=== PATIENT | male | born 1950 | race American Indian/Alaskan Native ===

== ENCOUNTER 2016-12-08 08:05 | Emergency (ER) | payer MEDICARE ==
[2016-12-08 08:45] LABS: Hematocrit 28.2 % (35.5-45.6); Hemoglobin 8.4 gm/dl (11.8-15.2); Mean Corpuscular HGB Conc 30 % (32-34); Platelet Count 227 K/mm3 (140-440); Red Blood Count 4.09 M/mm3 (3.65-5.03); White Blood Count 7.7 K/mm3 (4.5-11.0)
[2016-12-08 08:47] LABS: Mean Corpuscular Hemoglobin 21 pg (28-32); Mean Corpuscular Volume 69 fl (84-94); Red Cell Distribution Width 25.2 % (13.2-15.2)
[2016-12-08 08:56] LABS: Anion Gap 16 mmol/L; Blood Urea Nitrogen 12 mg/dL (9-20); Calcium 9.2 mg/dL (8.4-10.2); Carbon Dioxide 25 mmol/L (22-30); Chloride 103.1 mmol/L (98-107); Glucose 83 mg/dL (75-100); Potassium 4.9 mmol/L (3.6-5.0); Sodium 139 mmol/L (137-145)
[2016-12-08 09:29] LABS: Bilirubin,Urine NEG (Negative); Blood,Urine NEG (Negative); Ketones,Urine NEG (Negative); Leukocyte Esterase,Urine TR (Negative); Mucus,Urine FEW /HPF; Nitrite,Urine NEG (Negative); Protein,Urine <15 mg/dL mg/dL (Negative); RBC,Urine < 1.0 /HPF (0.0-6.0); Urobilinogen,Urine < 2.0 mg/dL (<2.0)
[2016-12-08 09:44] LABS: Anisocytosis 2+; Basophils % (Manual) 0 % (0.0-1.8); Blastocytes % (Manual) 0 %; Hypochromasia 2+; Microcytosis 1+
[2016-12-08 09:45] LABS: Diff Status Complete; Elliptocytes Few; Ovalocytes Few; Poikilocytosis 1+; Target Cells Few
[2016-12-08 13:39] VITALS: BP 128/77
[2016-12-08] MEDS ORDERED: MORPHINE IV ONE (15:57)
[2016-12-08] MEDS ORDERED: ZOFRAN IV ONE (15:57)
--- NOTE | 2016-12-08 18:38 | Cat Scan Report ---
FINAL REPORT EXAM: CT ABDOMEN PELVIS W CON HISTORY: lower abd pain anemia consider neoplasm TECHNIQUE: CT examination of the ABDOMEN after IV contrast CT examination of the PELVIS after IV contrast PRIORS: None. FINDINGS: Degenerative change in the regional skeleton. Rotatory lumbar scoliosis with upper right apex. Left hip arthroplasty in place. Metal artifact limits this region of the pelvis. Right hip degenerative arthrosis with severe medial joint space narrowing. No evidence of acute fracture or focal osseous lesion. Borderline cardiomegaly without pericardial effusion. Normal-appearing liver, gallbladder, adrenals, pancreas, and spleen. Intact normal caliber abdominal aorta with slight calcified atherosclerotic plaque. Normal caliber IVC. Nonspecific central decreased attenuation in the right common femoral vein may be heterogeneous mixture of IV contrast. The differential includes DVT. No renal calculus or hydronephrosis. Nonspecific, smoothly marginated, low density bilateral renal lesions may be cysts. These are too small to characterize measuring 8 mm on the right and 11 mm on the left. They do not enhance with IV contrast. The ureters are obscured by adjacent anatomy. No proximal ureteral distention. Nonspecific slight fat stranding throughout the abdominal wall may reflect mild anasarca. The exam is limited from a paucity of anatomical intraperitoneal fat to separate adjacent organs and structures. The ureters are largely obscured by adjacent soft tissues. Intestinal loops are also difficult to independently assess. No distention of the stomach and duodenum. No small bowel distention in the abdomen and pelvis. Nonspecific slight prominence of fluid in several small bowel loops. Scattered prominence of gas and stool throughout the colon may be secondary to constipation and/or paralytic ileus. No visible pelvic free fluid. No definite abnormality in the visible urinary bladder. Prominent prostate concretions bilaterally. Seminal vesicles obscured. Rectum partly obscured by metal artifact. No focal rectal abnormality. Prominent stool in rectum. No gross ascites or free air. No focal abnormality in the cecum, terminal ileum, and retrocecal appendix. No definite evidence of mass, adenopathy, or abscess. IMPRESSION: Examination limited by paucity of anatomical intraperitoneal fat to separate adjacent organs and structures Nonspecific central decreased attenuation in the proximal right common femoral vein may be heterogeneous mixture of IV contrast. The differential includes DVT. Consider follow-up right leg venous ultrasound to further characterize Borderline cardiomegaly Abdominal wall slight fat stranding may reflect mild anasarca Prominent gas, stool, and caliber in the colon and rectum may reflect constipation and/or paralytic ileus. There is also scattered prominence of gas and fluid in the small bowel
--- NOTE | 2016-12-08 19:14 | Emergency Department Report ---
ED General Adult HPI - General Chief complaint: Extremity Injury, Lower Stated complaint: LEFT HIP/ABD PAIN Time Seen by Provider: 12/08/16 14:41 Source: patient Mode of arrival: Wheelchair Limitations: Physical Limitation - History of Present Illness Initial comments: Patient presents to the emergency department for evaluation of chronic hip pain on the left. He states he's had this problem for many years actually not just 2 -3 weeks as the triage note indicates. He is status post a hip replacement. He states he has problems with urinary incontinence. He does not complain of any acute back pain. His problems with incontinence have gone on for years. He denies any recent fever or chills. There is been no vomiting no nausea. No chills have been referred. He is absolutely no right-sided abdominal pain nor any right lower extremity pain. He does not complain of acute shortness of breath. He states the pain also hurts in the left inguinal area but not on the right. This patient has been admitted prior with a history of alcohol abuse and upper GI bleeding. He required transfusion. He has not followed up with a physician since he was admitted. He did have an upper endoscopy. This revealed a duodenal ulcer. Patient states that he does see dark stools sometimes not recently. He does not admit to any recent alcohol abuse. -: Gradual, week(s), month(s) Location: pelvis, left, lower extremity Quality: aching Consistency: intermittent Improves with: none Worsens with: none Associated Symptoms: denies other symptoms Treatments Prior to Arrival: none - Related Data Previous Rx's Medication Instructions Recorded Last Taken Type Pantoprazole Sodium 40 mg PO DAILY #30 tablet. 05/22/16 Unknown Rx Ferrous Gluconate [Fergon 325 MG 325 mg PO TID #30 tablet 12/08/16 Unknown Rx tab] Lansoprazole [Prevacid] 15 mg PO BID #30 cap 12/08/16 Unknown Rx traMADol [Ultram] 50 mg PO Q6HR PRN #14 tablet 12/08/16 Unknown Rx Allergies Allergy/AdvReac Type Severity Reaction Status Date / Time No Known Allergies Allergy Verified 12/08/16 08:10 ED Review of Systems ROS: Stated complaint: LEFT HIP/ABD PAIN Other details as noted in HPI Constitutional: denies: chills, fever Eyes: denies: eye pain, eye discharge, vision change ENT: denies: ear pain, throat pain Respiratory: denies: cough, shortness of breath, wheezing Cardiovascular: denies: chest pain, palpitations Endocrine: no symptoms reported Gastrointestinal: as per HPI (left pelvis and hip only). denies: abdominal pain , nausea, diarrhea Genitourinary: denies: urgency, dysuria Musculoskeletal: as per HPI. denies: back pain, joint swelling, arthralgia Skin: denies: rash, lesions Neurological: denies: headache, weakness, paresthesias Psychiatric: denies: anxiety, depression Hematological/Lymphatic: denies: easy bleeding, easy bruising ED Past Medical Hx - Past Medical History Hx Hypertension: Yes ((pt denies 12/08/16)) Hx Heart Attack/AMI: No Hx Congestive Heart Failure: No Hx Arthritis: Yes Hx COPD: Yes Additional medical history: bleeding ulcers - Surgical History Hx Pacemaker: Yes Additional Surgical History: left hip replacement. hernia repair - Social History Smoking Status: Current Every Day Smoker Substance Use Type: None - Medications Home Medications: Home Medications Medication Instructions Recorded Confirmed Last Taken Type Pantoprazole Sodium 40 mg PO DAILY #30 tablet. 05/22/16 Unknown Rx Ferrous Gluconate [Fergon 325 MG 325 mg PO TID #30 tablet 12/08/16 Unknown Rx tab] Lansoprazole [Prevacid] 15 mg PO BID #30 cap 12/08/16 Unknown Rx traMADol [Ultram] 50 mg PO Q6HR PRN #14 tablet 12/08/16 Unknown Rx ED Physical Exam - General Limitations: No Limitations General appearance: alert, in no apparent distress - Head Head exam: Present: atraumatic, normocephalic - Eye Eye exam: Present: normal appearance. Absent: scleral icterus - ENT ENT exam: Present: normal exam, mucous membranes moist - Neck Neck exam: Present: normal inspection. Absent: tenderness, meningismus - Respiratory Respiratory exam: Present: normal lung sounds bilaterally. Absent: respiratory distress - Cardiovascular Cardiovascular Exam: Present: regular rate, normal rhythm. Absent: systolic murmur, diastolic murmur, rubs, gallop - GI/Abdominal GI/Abdominal exam: Present: soft, normal bowel sounds. Absent: distended, tenderness, guarding, rebound, rigid - Rectal Rectal exam: Present: deferred - Extremities Exam Extremities exam: Present: other (healed left total hip scar. Reasonably good range of motion. Nontender.) - Back Exam Back exam: Present: normal inspection. Absent: CVA tenderness (R), CVA tenderness (L), muscle spasm, paraspinal tenderness, vertebral tenderness - Neurological Exam Neurological exam: Present: alert, oriented X3, CN II-XII intact. Absent: motor sensory deficit - Psychiatric Psychiatric exam: Present: normal affect, normal mood - Skin Skin exam: Present: warm, dry, intact, normal color. Absent: rash ED Course Vital Signs 12/08/16 12/08/16 12/08/16 08:10 12:51 13:38 Temperature 97.7 F 97.6 F 97.9 F Pulse Rate 70 70 66 Respiratory 17 18 16 Rate Blood Pressure 109/73 130/79 128/77 O2 Sat by Pulse 100 100 100 Oximetry 12/08/16 13:39 Temperature Pulse Rate Respiratory 16 Rate Blood Pressure O2 Sat by Pulse 100 Oximetry - Reevaluation(s) Reevaluation #1: Patient was found to have a hypochromic microcytic anemia. Due to this I decided to do a CT of his abdomen and pelvis considering the differential diagnosis. The CT showed no correlating pathology. There was some mention of contrast collection versus indirect signs of DVT on the right femoral area. However there was no clinical correlation and no right-sided leg pain or swelling. This is considered to be an incidental finding. The patient ate in the emergency department and had no problems whatsoever. He appears to have chronic pain and chronic anemia. He would benefit from colonoscopy and further evaluation by a urologist for his prostatic hypertrophy and intermittent incontinence. He certainly needs follow-up with a primary care physician for his chronic anemia and gastroenterology as above indicated. His disposition is outpatient. He will be given a prescription for lansoprazole , Ultram for pain and ferrous gluconate. He is advised as to the above considerations. 12/08/16 19:17 ED Medical Decision Making - Lab Data Result diagrams: 12/08/16 08:23 12/08/16 08:23 Laboratory Results - last 24 hr 12/08/16 12/08/16 12/08/16 08:23 08:23 09:14 WBC 7.7 RBC 4.09 Hgb 8.4 L Hct 28.2 L MCV 69 L MCH 21 L MCHC 30 L RDW 25.2 H Plt Count 227 Add Manual Diff Complete Total Counted 100 Seg Neuts % (Manual) 76.0 H Band Neutrophils % 1.0 Lymphocytes % (Manual) 8.0 L Reactive Lymphs % (Man) 0 Monocytes % (Manual) 8.0 H Eosinophils % (Manual) 7.0 H Basophils % (Manual) 0 Metamyelocytes % 0 Myelocytes % 0 Promyelocytes % 0 Blast Cells % 0 Nucleated RBC % Not Reportable Seg Neutrophils # Man 5.9 Band Neutrophils # 0.1 Lymphocytes # (Manual) 0.6 L Abs React Lymphs (Man) 0.0 Monocytes # (Manual) 0.6 Eosinophils # (Manual) 0.5 H Basophils # (Manual) 0.0 Metamyelocytes # 0.0 Myelocytes # 0.0 Promyelocytes # 0.0 Blast Cells # 0.0 WBC Morphology Not Reportable Hypersegmented Neuts Not Reportable Hyposegmented Neuts Not Reportable Hypogranular Neuts Not Reportable Smudge Cells Not Reportable Toxic Granulation Not Reportable Toxic Vacuolation Not Reportable Dohle Bodies Not Reportable Pelger-Huet Anomaly Not Reportable Shantel Rods Not Reportable Platelet Estimate Appears normal Clumped Platelets Not Reportable Plt Clumps, EDTA Not Reportable Large Platelets Not Reportable Giant Platelets Not Reportable Platelet Satelliting Not Reportable Plt Morphology Comment Not Reportable RBC Morphology Not Reportable Dimorphic RBCs Not Reportable Polychromasia Not Reportable Hypochromasia 2+ Poikilocytosis 1+ Anisocytosis 2+ Microcytosis 1+ Macrocytosis Not Reportable Spherocytes Not Reportable Pappenheimer Bodies Not Reportable Sickle Cells Not Reportable Target Cells Few Tear Drop Cells Not Reportable Ovalocytes Few Helmet Cells Not Reportable [place] Bodies Not Reportable [place] Rings Not Reportable [place] Cells Not Reportable Bite Cells Not Reportable Crenated Cell Not Reportable Elliptocytes Few Acanthocytes (Spur) Not Reportable Rouleaux Not Reportable Hemoglobin C Crystals Not Reportable Schistocytes Not Reportable Malaria parasites Not Reportable Deandre Bodies Not Reportable Hem Pathologist Commnt No Sodium 139 Potassium 4.9 Chloride 103.1 Carbon Dioxide 25 Anion Gap 16 BUN 12 Creatinine 0.6 L Estimated GFR > 60 BUN/Creatinine Ratio 20.00 Glucose 83 Calcium 9.2 Urine Color Yellow Urine Turbidity Clear Urine pH 7.0 Ur Specific [place] 1.016 Urine Protein <15 mg/dl Urine Glucose (UA) Neg Urine Ketones Neg Urine Blood Neg Urine Nitrite Neg Urine Bilirubin Neg Urine Urobilinogen < 2.0 Ur Leukocyte Esterase Tr Urine WBC (Auto) 1.0 Urine RBC (Auto) < 1.0 U Epithel Cells (Auto) < 1.0 Urine Mucus Few - Radiology Data Radiology results: report reviewed interpreted by me: No acute findings see report Critical care attestation.: If time is entered above; I have spent that time in minutes in the direct care of this critically ill patient, excluding procedure time. ED Disposition Clinical Impression: Left hip pain, Chronic blood loss anemia, Prostatism Disposition: TO HOME OR SELFCARE Is pt being admited?: No Does the pt Need Aspirin: No Condition: Stable Instructions: Arthralgia (ED), Iron Deficiency Anemia (ED), Urinary Incontinence (ED) Additional Instructions: Follow-up with referral physicians. Return any acute change or problem. Rx as directed. Avoid anything that might irritate her stomach such as alcohol, abdomen or aspirin. Prescriptions: Ferrous Gluconate [Fergon 325 MG tab] 325 mg PO TID #30 tablet Lansoprazole [Prevacid] 15 mg PO BID #30 cap traMADol [Ultram] 50 mg PO Q6HR PRN #14 tablet PRN Reason: Pain Referrals: PRIMARY CARE, [Primary Care Provider] - 3-5 Days [facility] [Provider Group] - 3-5 Days [facility] [Provider Group] - 3-5 Days Time of Disposition: 19:31
[2016-12-08] MEDS ORDERED: NORCO 5/325 PO ONE (19:39)
[2016-12-08] MEDS ORDERED: NORCO 5/325 ONE (19:43)
== END 2016-12-08 19:43 | disposition home or self-care (01) ==
LOC: ED 08:05
DX: M25.552 Pain in left hip (principal); D50.0 Iron deficiency anemia secondary to blood loss (chronic); N40.0 Benign prostatic hyperplasia without lower urinary tract symptoms; M19.90 Unspecified osteoarthritis, unspecified site; J44.9 Chronic obstructive pulmonary disease, unspecified; I10 Essential (primary) hypertension; F17.200 Nicotine dependence, unspecified, uncomplicated
CPT/HCPCS: 36415; 74177; 80048; 81001; 85007; 85025; 96374; 96375; 99284; J2270; J2405; Q9967

== ENCOUNTER 2017-06-30 17:48 | Emergency (ER) | payer MEDICARE ==
[2017-06-30 18:19] VITALS: BP 117/75
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
--- NOTE | 2017-06-30 20:53 | XRay Report ---
FINAL REPORT EXAM: XR CHEST ROUTINE 2V HISTORY: coughing TECHNIQUE: Chest, PA and lateral PRIORS: None. FINDINGS: There is a pacemaker on the left. There is borderline cardiomegaly. There is no congestion or infiltrate. There is no pneumothorax IMPRESSION: There is no acute abnormality identified.
== END 2017-06-30 23:10 | disposition left against medical advice (07) ==
LOC: ED 17:48
DX: M54.2 Cervicalgia (principal); Z53.21 Procedure and treatment not carried out due to patient leaving prior to being seen by health care provider
CPT/HCPCS: 71046; 72125

== ENCOUNTER 2018-11-14 18:29 | Emergency (ER) | payer MEDICARE ==
[2018-11-14] MEDS ORDERED: ANCEF ONE (18:44)
--- NOTE | 2018-11-14 19:22 | Emergency Department Report ---
Blank Doc - Documentation Documentation: This is a 68-year-old male that presents with right foot pain and swelling. This initial assessment/diagnostic orders/clinical plan/treatment(s) is/are subject to change based on patient's health status, clinical progression and re- assessment by fellow clinical providers in the ED. Further treatment and workup at subsequent clinical providers discretion. Patient/guardians urged not to elope from the ED as their condition may be serious if not clinically assessed and managed. Initial orders include: 1- Patient sent to [facility] for further evaluation and treatment 2- xray
[2018-11-14 19:28] VITALS: BP 122/63
--- NOTE | 2018-11-14 20:21 | XRay Report ---
RIGHT FOOT 3 VIEWS. INDICATION / CLINICAL INFORMATION: foot pain COMPARISON: None available. FINDINGS: BONES / JOINT(S): No acute fracture or subluxation. Flatfoot deformity is noted. Mild degenerative ch judy at the midfoot. SOFT TISSUES: No significant abnormality. ADDITIONAL FINDINGS: None. Signer Name: Mal Padron MD Signed: 11/14/2018 8:16 PM Workstation Name: [id number]
[2018-11-14] MEDS ORDERED: IBUPROFEN PO ONE (20:52)
[2018-11-14] MEDS ORDERED: DELTASONE PO ONE (20:52)
--- NOTE | 2018-11-14 20:58 | Emergency Department Report ---
ED Extremity Problem HPI - General Chief complaint: Extremity Problem,Nontraumatic Stated complaint: (R) FOOT PAIN Time Seen by Provider: 11/14/18 19:22 Source: patient Mode of arrival: Ambulatory Limitations: No Limitations - History of Present Illness Initial comments: Patient is a 68-year-old male with a history of hypertension, COPD and chronic osteoarthritis who presents to the ED with complains of persistent worsening right knee, right ankle and foot pains with mild swelling intermittently for the last 6 months but worse in the last 1 week. Patient also complains of mild erythematous nonfluctuant maculopapular itchy rashes on his right lower leg for 1 week after working in the [employer]. Patient denies fall, traumatic injury, numbness and tingling or weakness of the right leg, dizziness, chest pain or shortness of breath, fever, chills, nausea, vomiting, back pain or heavy lifting. MD Complaint: extremity pain (right ankle, foot and knee), extremity swelling (right ankle, knee and foot), joint swelling (right ankle, foot and knee joints), joint paint (right knee, ankle and foot) -: Gradual, month(s) (6) Location: right, lower extremity (ankle, foot and knee), knee History of Same: Yes -: Yes myalgia, Yes arthralgia, No fever, No associated dyspnea, No associated chest pain Radiation: none Severity scale (0 -10): 6 Quality: aching, sharp Consistency: intermittent Improves with: nothing Worsens with: weight bearing, walking, exertion, palpation Associated Symptoms: denies other symptoms, arthralgias, rash (right lower leg mildly erythematous rashes). denies: chest pain, shortness of breath, fever, myalgias - Related Data Previous Rx's Medication Instructions Recorded Last Taken Type Pantoprazole Sodium 40 mg PO DAILY #30 tablet. 05/22/16 Unknown Rx Ferrous Gluconate [Fergon 325 MG 325 mg PO TID #20 tablet 12/08/16 Unknown Rx tab] Ferrous Gluconate [Fergon 325 MG 325 mg PO TID #30 tablet 12/08/16 Unknown Rx tab] Lansoprazole [Prevacid] 15 mg PO BID #30 cap 12/08/16 Unknown Rx Lansoprazole [Prevacid] 15 mg PO BID #60 cap 12/08/16 Unknown Rx traMADol [Ultram] 50 mg PO Q6HR PRN #14 tablet 12/08/16 Unknown Rx raNITIdine HCl [Zantac] 150 mg PO Q12H #20 tablet 11/14/18 Unknown Rx traMADol [Ultram 50 MG tab] 50 mg PO Q6HR PRN #14 tablet 11/14/18 Unknown Rx Allergies Allergy/AdvReac Type Severity Reaction Status Date / Time No Known Allergies Allergy Verified 12/08/16 08:10 ED Review of Systems ROS: Stated complaint: (R) FOOT PAIN Other details as noted in HPI Comment: All other systems reviewed and negative Constitutional: denies: chills, fever Eyes: denies: eye pain, eye discharge, vision change ENT: denies: ear pain, throat pain Respiratory: denies: cough, shortness of breath, wheezing Cardiovascular: denies: chest pain, palpitations Endocrine: no symptoms reported Gastrointestinal: denies: abdominal pain, nausea, diarrhea Genitourinary: denies: urgency, dysuria Musculoskeletal: joint swelling (right ankle, knee and foot), arthralgia (right ankle, foot and knee). denies: back pain Skin: rash (erythematous itchy maculopapular rash on right lower leg), change in color, pruritus. denies: lesions Neurological: denies: headache, weakness, paresthesias Psychiatric: denies: anxiety, depression Hematological/Lymphatic: denies: easy bleeding, easy bruising ED Past Medical Hx - Past Medical History Previous Medical History?: Yes Hx Hypertension: Yes ((pt denies 12/08/16)) Hx Heart Attack/AMI: No Hx Congestive Heart Failure: No Hx Arthritis: Yes Hx COPD: Yes Additional medical history: bleeding ulcers - Surgical History Past Surgical History?: Yes Hx Pacemaker: Yes Additional Surgical History: left hip replacement. hernia repair. pacemaker - Social History Smoking Status: Current Every Day Smoker Substance Use Type: None - Medications Home Medications: Home Medications Medication Instructions Recorded Confirmed Last Taken Type Pantoprazole Sodium 40 mg PO DAILY #30 tablet. 05/22/16 Unknown Rx Ferrous Gluconate [Fergon 325 MG 325 mg PO TID #20 tablet 12/08/16 Unknown Rx tab] Ferrous Gluconate [Fergon 325 MG 325 mg PO TID #30 tablet 12/08/16 Unknown Rx tab] Lansoprazole [Prevacid] 15 mg PO BID #30 cap 12/08/16 Unknown Rx Lansoprazole [Prevacid] 15 mg PO BID #60 cap 12/08/16 Unknown Rx traMADol [Ultram] 50 mg PO Q6HR PRN #14 tablet 12/08/16 Unknown Rx raNITIdine HCl [Zantac] 150 mg PO Q12H #20 tablet 11/14/18 Unknown Rx traMADol [Ultram 50 MG tab] 50 mg PO Q6HR PRN #14 tablet 11/14/18 Unknown Rx ED Physical Exam - General Limitations: No Limitations General appearance: alert, in no apparent distress - Head Head exam: Present: atraumatic, normocephalic, normal inspection - Eye Eye exam: Present: normal appearance, PERRL, EOMI. Absent: scleral icterus, conjunctival injection Pupils: Present: normal accommodation - ENT ENT exam: Present: normal exam, normal orophraynx, mucous membranes moist, TM's normal bilaterally, normal external ear exam - Neck Neck exam: Present: normal inspection, full ROM. Absent: tenderness, menin gismus, lymphadenopathy, thyromegaly - Respiratory Respiratory exam: Present: normal lung sounds bilaterally. Absent: respiratory distress, wheezes, rales, rhonchi, chest wall tenderness, accessory muscle use, decreased breath sounds, prolonged expiratory - Cardiovascular Cardiovascular Exam: Present: regular rate, normal rhythm, normal heart sounds. Absent: systolic murmur, diastolic murmur, rubs, gallop - GI/Abdominal GI/Abdominal exam: Present: soft, normal bowel sounds. Absent: tenderness, guarding, rebound, hyperactive bowel sounds, hypoactive bowel sounds, organomegaly, bruit, pulsatile mass, hernia - Rectal Rectal exam: Present: deferred - Extremities Exam Extremities exam: Present: normal inspection, full ROM, tenderness (Palpable right knee, ankle and foot tenderness), normal capillary refill, joint swelling (right knee, ankle and foot). Absent: pedal edema, calf tenderness - Back Exam Back exam: Present: normal inspection, full ROM. Absent: tenderness, CVA tenderness (R), CVA tenderness (L), muscle spasm, paraspinal tenderness, vertebral tenderness - Neurological Exam Neurological exam: Present: alert, oriented X3, CN II-XII intact, normal gait, reflexes normal - Psychiatric Psychiatric exam: Present: normal affect, normal mood - Skin Skin exam: Present: warm, dry, intact, rash (Erythematous maculopapular nonfluctuant rash on right lower leg), erythema ED Course Vital Signs 11/14/18 19:22 Temperature 98 F Pulse Rate 73 Respiratory 18 Rate Blood Pressure 122/63 O2 Sat by Pulse 100 Oximetry - Reevaluation(s) Reevaluation #1: 11/14/18 21:00 This is a 68-year-old AA male who presented to the ED with the worsening right knee, right ankle and foot pain an erythematous maculopapular rash on right lower leg. In the ED, patient is alert and oriented 3 and is not in distress. The right foot x-ray shows no acute fracture or subluxations. Flat foot deformity was noted index as well, and the mild degenerative changes at the midfoot. Patient was treated for pain and discharged home on medications for pain as well as a cream for the erythematous rash on the right lower leg. Patient was advised to follow-up with his primary care physician in 5-7 days for reevaluation or return to the ED immediately if symptoms get worse. 11/14/18 21:03 ED Medical Decision Making - Radiology Data Radiology results: report reviewed, image reviewed The right foot x-ray shows no acute fracture or subluxations. Flat foot deformity was noted index as well, and the mild degenerative changes at the midfoot. - Medical Decision Making This is a 68-year-old AA male who presented to the ED with the worsening right knee, right ankle and foot pain an erythematous maculopapular rash on right lower leg. In the ED, patient is alert and oriented 3 and is not in distress. The right foot x-ray shows no acute fracture or subluxations. Flat foot deformity was noted index as well, and the mild degenerative changes at the midfoot. Patient was treated for pain and discharged home on medications for pain as well as a cream for the erythematous rash on the right lower leg. Patient was advised to follow-up with his primary care physician in 5-7 days for reevaluation or return to the ED immediately if symptoms get worse. - Differential Diagnosis Right foot sprain; Chronic degeenrative joint disease; Irritant dermatitis Critical care attestation.: If time is entered above; I have spent that time in minutes in the direct care of this critically ill patient, excluding procedure time. ED Disposition Clinical Impression: Chronic osteoarthritis Irritant contact dermatitis Qualifiers: Contact dermatitis trigger: unspecified trigger Qualified Code(s): L24.9 - Irritant contact dermatitis, unspecified cause Disposition: TO HOME OR SELFCARE Is pt being admited?: No Does the pt Need Aspirin: No Condition: Stable Instructions: Osteoarthritis (ED), Contact Dermatitis (ED) Additional Instructions: Take medications with food, drink plenty of fluids and follow up with your primary care physician in 5-7 days for reevaluation. Return to the ED immediately if symptoms get worse. Prescriptions: traMADol [Ultram 50 MG tab] 50 mg PO Q6HR PRN #14 tablet PRN Reason: Pain raNITIdine HCl [Zantac] 150 mg PO Q12H #20 tablet Referrals: [facility] [Outside] - 3-5 Days Time of Disposition: 21:07 Print Language: VIET[place]ESE
== END 2018-11-14 21:15 | disposition home or self-care (01) ==
LOC: ED 18:29
DX: M17.11 Unilateral primary osteoarthritis, right knee (principal); M19.071 Primary osteoarthritis, right ankle and foot; L24.9 Irritant contact dermatitis, unspecified cause; I10 Essential (primary) hypertension; M19.90 Unspecified osteoarthritis, unspecified site; F17.200 Nicotine dependence, unspecified, uncomplicated; J44.9 Chronic obstructive pulmonary disease, unspecified; Z95.0 Presence of cardiac pacemaker; Z96.642 Presence of left artificial hip joint; Z79.899 Other long term (current) drug therapy
CPT/HCPCS: 73630; 99283; J7512; J0690

== ENCOUNTER 2019-03-16 16:48 | Inpatient (IN) | payer MEDICARE ==
--- NOTE | 2019-03-16 17:01 | Event Note ---
ED Screening Note ED Screening Note: presents for detox states he used cocaine yesterday former drinker former smoker +SI "jump off a bridge" states pt "does not have anyone anymore due to his drug addiction" This initial assessment/diagnostic orders/clinical plan/treatment(s) is/are subject to change based on patients health status, clinical progression and re- assessment by fellow clinical providers in the ED. Further treatment and workup at subsequent clinical providers discretion. Patient/guardian urged not to elope from the ED as their condition may be serious if not clinically assessed and managed. Initial orders include: medical clearance, ED hold
[2019-03-16] MEDS ORDERED: SODIUM CHLORIDE 0.9% 1000 ML 1,000 ML IV ONE (18:48)
--- NOTE | 2019-03-16 19:18 | Emergency Department Report ---
ED General Adult HPI - General Chief complaint: Medical Clearance Stated complaint: DETOX Time Seen by Provider: 03/16/19 16:58 Source: patient Mode of arrival: Ambulatory Limitations: No Limitations - History of Present Illness Initial comments: Patient is a 68-year-old male with a past medical history of COPD hypertension who also has a pacemaker in place who is here secondary to cocaine abuse. Patient states he would like help with stopping his cocaine addiction. Patient states that when he uses cocaine he does have chest pain or shortness of breath. Patient states this lasts anywhere from minutes to an hour. Patient still denies suicidal ideations with me however he did express to our medical screening exam prior that he has had thoughts recently of jumping off a bridge. Again patient states that he is not suicidal at this time and is here voluntarily to get help for cocaine abuse. Patient states he has not eaten or drank anything in the last 3 days secondary to a cocaine binge. Patient states he has some dizziness and weakness at this time. Patient states his chest pain is not present at this time. He denies fevers chills current nausea vomiting diarrhea neck stiffness or headache. Patient states he has no focal neurological deficits. Severity scale (0 -10): 7 - Related Data Previous Rx's Medication Instructions Recorded Last Taken Type Pantoprazole Sodium 40 mg PO DAILY #30 tablet. 05/22/16 Unknown Rx Ferrous Gluconate [Fergon 325 MG 325 mg PO TID #20 tablet 12/08/16 Unknown Rx tab] Ferrous Gluconate [Fergon 325 MG 325 mg PO TID #30 tablet 12/08/16 Unknown Rx tab] Lansoprazole [Prevacid] 15 mg PO BID #30 cap 12/08/16 Unknown Rx Lansoprazole [Prevacid] 15 mg PO BID #60 cap 12/08/16 Unknown Rx traMADoL [Ultram] 50 mg PO Q6HR PRN #14 tablet 12/08/16 Unknown Rx raNITIdine HCl [Zantac] 150 mg PO Q12H #20 tablet 11/14/18 Unknown Rx traMADoL [Ultram 50 MG tab] 50 mg PO Q6HR PRN #14 tablet 11/14/18 Unknown Rx Allergies Allergy/AdvReac Type Severity Reaction Status Date / Time No Known Allergies Allergy Verified 12/08/16 08:10 ED Review of Systems ROS: Stated complaint: DETOX Other details as noted in HPI Comment: All other systems reviewed and negative ED Past Medical Hx - Past Medical History Hx Hypertension: Yes ((pt denies 12/08/16)) Hx Heart Attack/AMI: No Hx Congestive Heart Failure: No Hx Arthritis: Yes Hx COPD: Yes Additional medical history: bleeding ulcers - Surgical History Hx Pacemaker: Yes Additional Surgical History: left hip replacement. hernia repair. pacemaker - Social History Smoking Status: Current Every Day Smoker Substance Use Type: Alcohol, Cocaine, Marijuana - Medications Home Medications: Home Medications Medication Instructions Recorded Confirmed Last Taken Type Pantoprazole Sodium 40 mg PO DAILY #30 tablet. 05/22/16 Unknown Rx Ferrous Gluconate [Fergon 325 MG 325 mg PO TID #20 tablet 12/08/16 Unknown Rx tab] Ferrous Gluconate [Fergon 325 MG 325 mg PO TID #30 tablet 12/08/16 Unknown Rx tab] Lansoprazole [Prevacid] 15 mg PO BID #30 cap 12/08/16 Unknown Rx Lansoprazole [Prevacid] 15 mg PO BID #60 cap 12/08/16 Unknown Rx traMADoL [Ultram] 50 mg PO Q6HR PRN #14 tablet 12/08/16 Unknown Rx raNITIdine HCl [Zantac] 150 mg PO Q12H #20 tablet 11/14/18 Unknown Rx traMADoL [Ultram 50 MG tab] 50 mg PO Q6HR PRN #14 tablet 11/14/18 Unknown Rx ED Physical Exam - General Limitations: No Limitations General appearance: alert, in no apparent distress - Head Head exam: Present: atraumatic, normocephalic - Eye Eye exam: Present: normal appearance, PERRL, EOMI - ENT ENT exam: Present: mucous membranes moist - Neck Neck exam: Present: normal inspection - Respiratory Respiratory exam: Present: normal lung sounds bilaterally. Absent: respiratory distress, wheezes, rales, rhonchi - Cardiovascular Cardiovascular Exam: Present: regular rate, normal rhythm, normal heart sounds. Absent: systolic murmur, diastolic murmur, rubs, gallop - GI/Abdominal GI/Abdominal exam: Present: soft, normal bowel sounds. Absent: distended, tenderness, guarding, rebound - Rectal Rectal exam: Present: deferred - Extremities Exam Extremities exam: Present: normal inspection - Back Exam Back exam: Present: normal inspection - Neurological Exam Neurological exam: Present: alert, oriented X3 - Psychiatric Psychiatric exam: Present: normal affect, normal mood - Skin Skin exam: Present: warm, dry, intact, normal color. Absent: rash ED Course Vital Signs 03/16/19 03/16/19 03/16/19 16:59 18:54 18:56 Temperature 97.4 F L Pulse Rate 97 H 73 Respiratory 20 18 18 Rate Blood Pressure 87/59 Blood Pressure 123/60 [Left] O2 Sat by Pulse 98 100 Oximetry 03/17/19 03:08 Temperature Pulse Rate Respiratory Rate Blood Pressure Blood Pressure 94/60 [Left] O2 Sat by Pulse Oximetry - Reevaluation(s) Reevaluation #1: 03/17/19 01:33 Patient asleep at this time. Patient initially had IV fluids ordered but they were held because the patient's blood pressure was no longer hypotensive at the time of our initial interaction. Patient was awake and alert and about the room. Patient while awake was refusing an IV being placed. After the second troponin came back elevated the patient did agree to having IV placed. Patient did have a drop in his blood pressure after falling asleep. IV fluids will be given at this point. Patient is to be admitted to the hospitalist service however because of the patient's hypotension which has not been addressed with IV fluids were unable to place a bed request at this time secondary to not knowing which even if the patient would be best served. Reevaluation #2: 03/17/19 03:26 Patient had multiple hypotensive readings even after the patient was woken up and given something to eat and the patient also has laboratory to the bathroom to have a bowel movement. Patient very agitated and stating that he wanted more sandwiches. I questioned whether the patient was actually hypotensive and that he wasn't having a blood pressure cuff malfunction. Blood pressure cuff was changed in the patient's pressure was 110/80. Patient is now receiving IV fluids as well however. Patient is stable for admission to telemetry. ED Medical Decision Making - Lab Data Result diagrams: 03/16/19 21:05 03/16/19 21:05 Lab Results 03/16/19 03/16/19 03/16/19 Range/Units 21:05 21:05 21:05 WBC 9.6 (4.5-11.0) K/mm3 RBC 4.51 (3.65-5.03) M/mm3 Hgb 14.0 (11.8-15.2) gm/dl Hct 42.0 (35.5-45.6) % MCV 93 (84-94) fl MCH 31 (28-32) pg MCHC 33 (32-34) % RDW 14.3 (13.2-15.2) % Plt Count 159 (140-440) K/mm3 Lymph % (Auto) 11.9 L (13.4-35.0) % [place] % (Auto) 6.4 (0.0-7.3) % Eos % (Auto) 1.7 (0.0-4.3) % Baso % (Auto) 0.2 (0.0-1.8) % Lymph # 1.1 L (1.2-5.4) K/mm3 [place] # 0.6 (0.0-0.8) K/mm3 Eos # 0.2 (0.0-0.4) K/mm3 Baso # 0.0 (0.0-0.1) K/mm3 Seg Neutrophils % 79.8 H (40.0-70.0) % Seg Neutrophils # 7.7 (1.8-7.7) K/mm3 Sodium 139 (137-145) mmol/L Potassium 4.3 (3.6-5.0) mmol/L Chloride 106.0 (98-107) mmol/L Carbon Dioxide 22 (22-30) mmol/L Anion Gap 15 mmol/L BUN 10 (9-20) mg/dL Creatinine 0.7 L (0.8-1.5) mg/dL Estimated GFR > 60 ml/min BUN/Creatinine Ratio 14 % Glucose 103 H (75-100) mg/dL Calcium 9.0 (8.4-10.2) mg/dL Total Bilirubin 0.40 (0.1-1.2) mg/dL AST 30 (5-40) units/L ALT 27 (7-56) units/L Alkaline Phosphatase 101 (35-129) units/L Total Creatine Kinase (55-170) units/L Troponin T (0.00-0.029) ng/mL Total Protein 7.3 (6.3-8.2) g/dL Albumin 3.2 L (3.9-5) g/dL Albumin/Globulin Ratio 0.8 % Triglycerides (2-149) mg/dL Cholesterol (50-199) mg/dL LDL Cholesterol Direct (50-130) mg/dL HDL Cholesterol (40-59) mg/dL Cholesterol/HDL Ratio % Urine Color (Yellow) Urine Turbidity (Clear) Urine pH (5.0-7.0) Ur Specific [place] (1.003-1.030) Urine Protein (Negative) mg/dL Urine Glucose (UA) (Negative) mg/dL Urine Ketones (Negative) mg/dL Urine Blood (Negative) Urine Nitrite (Negative) Urine Bilirubin (Negative) Urine Urobilinogen (<2.0) mg/dL Ur Leukocyte Esterase (Negative) Urine WBC (Auto) (0.0-6.0) /HPF Urine RBC (Auto) (0.0-6.0) /HPF U Epithel Cells (Auto) (0-13.0) /HPF Urine Bacteria (Auto) (Negative) /HPF Urine Mucus /HPF Salicylates < 0.3 L (2.8-20.0) mg/dL Urine Opiates Screen Urine Methadone Screen Acetaminophen (10.0-30.0) ug/mL Ur Barbiturates Screen Ur Phencyclidine Scrn Ur Amphetamines Screen U Benzodiazepines Scrn Urine Cocaine Screen U Marijuana (THC) Screen Drugs of Abuse Note Plasma/Serum Alcohol (0-0.07) % 03/16/19 03/16/19 03/16/19 Range/Units 21:05 21:05 21:05 WBC (4.5-11.0) K/mm3 RBC (3.65-5.03) M/mm3 Hgb (11.8-15.2) gm/dl Hct (35.5-45.6) % MCV (84-94) fl MCH (28-32) pg MCHC (32-34) % RDW (13.2-15.2) % Plt Count (140-440) K/mm3 Lymph % (Auto) (13.4-35.0) % [place] % (Auto) (0.0-7.3) % Eos % (Auto) (0.0-4.3) % Baso % (Auto) (0.0-1.8) % Lymph # (1.2-5.4) K/mm3 [place] # (0.0-0.8) K/mm3 Eos # (0.0-0.4) K/mm3 Baso # (0.0-0.1) K/mm3 Seg Neutrophils % (40.0-70.0) % Seg Neutrophils # (1.8-7.7) K/mm3 Sodium (137-145) mmol/L Potassium (3.6-5.0) mmol/L Chloride (98-107) mmol/L Carbon Dioxide (22-30) mmol/L Anion Gap mmol/L BUN (9-20) mg/dL Creatinine (0.8-1.5) mg/dL Estimated GFR ml/min BUN/Creatinine Ratio % Glucose (75-100) mg/dL Calcium (8.4-10.2) mg/dL Total Bilirubin (0.1-1.2) mg/dL AST (5-40) units/L ALT (7-56) units/L Alkaline Phosphatase (35-129) units/L Total Creatine Kinase 362 H (55-170) units/L Troponin T (0.00-0.029) ng/mL Total Protein (6.3-8.2) g/dL Albumin (3.9-5) g/dL Albumin/Globulin Ratio % Triglycerides (2-149) mg/dL Cholesterol (50-199) mg/dL LDL Cholesterol Direct (50-130) mg/dL HDL Cholesterol (40-59) mg/dL Cholesterol/HDL Ratio % Urine Color (Yellow) Urine Turbidity (Clear) Urine pH (5.0-7.0) Ur Specific [place] (1.003-1.030) Urine Protein (Negative) mg/dL Urine Glucose (UA) (Negative) mg/dL Urine Ketones (Negative) mg/dL Urine Blood (Negative) Urine Nitrite (Negative) Urine Bilirubin (Negative) Urine Urobilinogen (<2.0) mg/dL Ur Leukocyte Esterase (Negative) Urine WBC (Auto) (0.0-6.0) /HPF Urine RBC (Auto) (0.0-6.0) /HPF U Epithel Cells (Auto) (0-13.0) /HPF Urine Bacteria (Auto) (Negative) /HPF Urine Mucus /HPF Salicylates (2.8-20.0) mg/dL Urine Opiates Screen Urine Methadone Screen Acetaminophen < 5.0 L (10.0-30.0) ug/mL Ur Barbiturates Screen Ur Phencyclidine Scrn Ur Amphetamines Screen U Benzodiazepines Scrn Urine Cocaine Screen U Marijuana (THC) Screen Drugs of Abuse Note Plasma/Serum Alcohol < 0.01 (0-0.07) % 03/16/19 03/16/19 03/16/19 Range/Units 21:05 Unknown Unknown WBC (4.5-11.0) K/mm3 RBC (3.65-5.03) M/mm3 Hgb (11.8-15.2) gm/dl Hct (35.5-45.6) % MCV (84-94) fl MCH (28-32) pg MCHC (32-34) % RDW (13.2-15.2) % Plt Count (140-440) K/mm3 Lymph % (Auto) (13.4-35.0) % [place] % (Auto) (0.0-7.3) % Eos % (Auto) (0.0-4.3) % Baso % (Auto) (0.0-1.8) % Lymph # (1.2-5.4) K/mm3 [place] # (0.0-0.8) K/mm3 Eos # (0.0-0.4) K/mm3 Baso # (0.0-0.1) K/mm3 Seg Neutrophils % (40.0-70.0) % Seg Neutrophils # (1.8-7.7) K/mm3 Sodium (137-145) mmol/L Potassium (3.6-5.0) mmol/L Chloride (98-107) mmol/L Carbon Dioxide (22-30) mmol/L Anion Gap mmol/L BUN (9-20) mg/dL Creatinine (0.8-1.5) mg/dL Estimated GFR ml/min BUN/Creatinine Ratio % Glucose (75-100) mg/dL Calcium (8.4-10.2) mg/dL Total Bilirubin (0.1-1.2) mg/dL AST (5-40) units/L ALT (7-56) units/L Alkaline Phosphatase (35-129) units/L Total Creatine Kinase (55-170) units/L Troponin T 0.028 (0.00-0.029) ng/mL Total Protein (6.3-8.2) g/dL Albumin (3.9-5) g/dL Albumin/Globulin Ratio % Triglycerides (2-149) mg/dL Cholesterol (50-199) mg/dL LDL Cholesterol Direct (50-130) mg/dL HDL Cholesterol (40-59) mg/dL Cholesterol/HDL Ratio % Urine Color Yellow (Yellow) Urine Turbidity Clear (Clear) Urine pH 6.0 (5.0-7.0) Ur Specific [place] 1.020 (1.003-1.030) Urine Protein <15 mg/dl (Negative) mg/dL Urine Glucose (UA) Neg (Negative) mg/dL Urine Ketones Neg (Negative) mg/dL Urine Blood Neg (Negative) Urine Nitrite Neg (Negative) Urine Bilirubin Neg (Negative) Urine Urobilinogen 4.0 (<2.0) mg/dL Ur Leukocyte Esterase Sm (Negative) Urine WBC (Auto) 4.0 (0.0-6.0) /HPF Urine RBC (Auto) 4.0 (0.0-6.0) /HPF U Epithel Cells (Auto) < 1.0 (0-13.0) /HPF Urine Bacteria (Auto) 1+ (Negative) /HPF Urine Mucus Few /HPF Salicylates (2.8-20.0) mg/dL Urine Opiates Screen Presumptive negative Urine Methadone Screen Presumptive negative Acetaminophen (10.0-30.0) ug/mL Ur Barbiturates Screen Presumptive negative Ur Phencyclidine Scrn Presumptive negative Ur Amphetamines Screen Presumptive negative U Benzodiazepines Scrn Presumptive negative Urine Cocaine Screen Presumptive positive U Marijuana (THC) Screen Presumptive negative Drugs of Abuse Note Disclamer Plasma/Serum Alcohol (0-0.07) % 03/17/19 Range/Units 00:07 WBC (4.5-11.0) K/mm3 RBC (3.65-5.03) M/mm3 Hgb (11.8-15.2) gm/dl Hct (35.5-45.6) % MCV (84-94) fl MCH (28-32) pg MCHC (32-34) % RDW (13.2-15.2) % Plt Count (140-440) K/mm3 Lymph % (Auto) (13.4-35.0) % [place] % (Auto) (0.0-7.3) % Eos % (Auto) (0.0-4.3) % Baso % (Auto) (0.0-1.8) % Lymph # (1.2-5.4) K/mm3 [place] # (0.0-0.8) K/mm3 Eos # (0.0-0.4) K/mm3 Baso # (0.0-0.1) K/mm3 Seg Neutrophils % (40.0-70.0) % Seg Neutrophils # (1.8-7.7) K/mm3 Sodium (137-145) mmol/L Potassium (3.6-5.0) mmol/L Chloride (98-107) mmol/L Carbon Dioxide (22-30) mmol/L Anion Gap mmol/L BUN (9-20) mg/dL Creatinine (0.8-1.5) mg/dL Estimated GFR ml/min BUN/Creatinine Ratio % Glucose (75-100) mg/dL Calcium (8.4-10.2) mg/dL Total Bilirubin (0.1-1.2) mg/dL AST (5-40) units/L ALT (7-56) units/L Alkaline Phosphatase (35-129) units/L Total Creatine Kinase (55-170) units/L Troponin T 0.035 H D (0.00-0.029) ng/mL Total Protein (6.3-8.2) g/dL Albumin (3.9-5) g/dL Albumin/Globulin Ratio % Triglycerides 51 (2-149) mg/dL Cholesterol 91 (50-199) mg/dL LDL Cholesterol Direct 34 L (50-130) mg/dL HDL Cholesterol 55 (40-59) mg/dL Cholesterol/HDL Ratio 1.65 % Urine Color (Yellow) Urine Turbidity (Clear) Urine pH (5.0-7.0) Ur Specific [place] (1.003-1.030) Urine Protein (Negative) mg/dL Urine Glucose (UA) (Negative) mg/dL Urine Ketones (Negative) mg/dL Urine Blood (Negative) Urine Nitrite (Negative) Urine Bilirubin (Negative) Urine Urobilinogen (<2.0) mg/dL Ur Leukocyte Esterase (Negative) Urine WBC (Auto) (0.0-6.0) /HPF Urine RBC (Auto) (0.0-6.0) /HPF U Epithel Cells (Auto) (0-13.0) /HPF Urine Bacteria (Auto) (Negative) /HPF Urine Mucus /HPF Salicylates (2.8-20.0) mg/dL Urine Opiates Screen Urine Methadone Screen Acetaminophen (10.0-30.0) ug/mL Ur Barbiturates Screen Ur Phencyclidine Scrn Ur Amphetamines Screen U Benzodiazepines Scrn Urine Cocaine Screen U Marijuana (THC) Screen Drugs of Abuse Note Plasma/Serum Alcohol (0-0.07) % - EKG Data 03/16/19 19:41 EKG shows a ventricular paced rhythm with a rate of 73. [place] is leftward. Intervals the QRS complex is widened and a left bundle-branch block type pattern. There is no obvious ischemic ST elevations or depressions. Critical Care Time: Yes Critical care attestation.: If time is entered above; I have spent that time in minutes in the direct care of this critically ill patient, excluding procedure time. ED Disposition Clinical Impression: Cocaine abuse Chest pain Qualifiers: Chest pain type: chest pain due to myocardial ischemia Ischemic chest pain type: stable angina pectoris Qualified Code(s): I20.8 - Other forms of angina pectoris Disposition: DC-09 OP ADMIT IP TO THIS HOSP Is pt being admited?: Yes Does the pt Need Aspirin: Yes Condition: Stable Instructions: Chest Pain (ED) Time of Disposition: 03:28
--- NOTE | 2019-03-16 19:27 | XRay Report ---
CHEST 1 VIEW 03/16/2019 6:48 PM INDICATION / CLINICAL INFORMATION: Chest pain. COMPARISON: 06/30/2017 FINDINGS: SUPPORT DEVICES: Stable appropriate position of cardiac pacemaker. HEART / MEDIASTINUM: No significant abnormality. LUNGS / PLEURA: No significant pulmonary or pleural abnormality. No pneumothorax. ADDITIONAL FINDINGS: No significant additional findings. IMPRESSION: 1. No acute findings. Signer Name: Reece Loya MD Signed: 03/16/2019 7:23 PM Workstation Name: [id number]
[2019-03-16 21:16] LABS: Basophils % (Auto) 0.2 % (0.0-1.8); Eosinophils # (Auto) 0.2 K/mm3 (0.0-0.4); Eosinophils % (Auto) 1.7 % (0.0-4.3); Lymphocytes # (Auto) 1.1 K/mm3 (1.2-5.4); Lymphocytes % (Auto) 11.9 % (13.4-35.0); Mean Corpuscular HGB Conc 33 % (32-34); Mean Corpuscular Volume 93 fl (84-94); Monocytes # (Auto) 0.6 K/mm3 (0.0-0.8); Monocytes % (Auto) 6.4 % (0.0-7.3); Platelet Count 159 K/mm3 (140-440); Red Blood Count 4.51 M/mm3 (3.65-5.03); Red Cell Distribution Width 14.3 % (13.2-15.2)
[2019-03-16 21:37] LABS: Alanine Aminotransferase 27 units/L (7-56); Albumin 3.2 g/dL (3.9-5); BUN/Creatinine Ratio 14; Blood Urea Nitrogen 10 mg/dL (9-20); Hemolysis Index 44
[2019-03-17] MEDS ORDERED: SODIUM CHLORIDE 0.9% 1000 ML 1,000 ML IV ONE (01:31)
[2019-03-17 02:13] LABS: Chol/HDL Ratio 1.65 %
[2019-03-17 02:30] LABS: Bacteria,Urine 1+ /HPF (Negative); Bilirubin,Urine NEG (Negative); Blood,Urine NEG (Negative); Color,Urine Yellow (Yellow); Mucus,Urine FEW /HPF; Protein,Urine <15 mg/dL mg/dL (Negative)
[2019-03-17 02:58] LABS: Amphetamine Screen,Urine PRESUMPTIVE NEGATIVE; Benzodiazepines Screen,Urine PRESUMPTIVE NEGATIVE; Cannabinoid Screen,Urine PRESUMPTIVE NEGATIVE; Methadone Screen,Urine PRESUMPTIVE NEGATIVE; Opiate Screen,Urine PRESUMPTIVE NEGATIVE
[2019-03-17 02:59] LABS: Cocaine Screen,Urine PRESUMPTIVE POSITIVE
[2019-03-17] MEDS ORDERED: ASPIRIN 325 MG TAB PO ONE (03:28)
[2019-03-17] MEDS ORDERED: traMADol 50 MG TAB PO PRN (03:38)
[2019-03-17] MEDS ORDERED: NITROGLYCERIN 0.4 MG TAB SUBL SL PRN (03:38)
[2019-03-17] MEDS ORDERED: ONDANSETRON 4 MG/2 ML INJ IV PRN (03:38)
[2019-03-17] MEDS ORDERED: ACETAMINOPHEN 325 MG TAB PO PRN (03:38)
--- NOTE | 2019-03-17 04:06 | History and Physical Report ---
<JOSE R THOMASON - Last Filed: 03/17/19 04:06> History of Present Illness Date of examination: 03/17/19 Date of admission: 03/17/2019 Chief complaint: chest pain post cocaine binge History of present illness: 68-year-old -Syrian male with a straight of tobacco abuse, cocaine abuse, alcohol abuse, COPD, HTN, rhinitis, and bleeding duodenal ulcer presents to [facility] ED with complaints of CP. Pt states that he was on a 3 day cocaine binge, and after coming off the binge he started experiencing chest pain. Pt acknowledges that when he uses cocaine he experiences shortness of breath and or chest pain. The pain is intermittent in nature, and he rates it 5/10. The pain is aggravated with movement and relieved with rest. He denies n/v/, and diaphoresis. Pt has pacemaker secondary to cocaine abuse. He's not sure how l watson he's had the pacemaker. He denies history of stress testing, ehco, cardiac cath or cardiac work up. Past History Past Medical History: arthritis, COPD, hypertension, other (doudenal ulcer with bleed) Past Surgical History: hernia repair, total hip replacement (left hip), Other (pace maker 2nd to cocaine abuse) Social history: lives with family (son), smoking (current everyday smoker), alcohol abuse, other (cocaine abuse) Family history: no significant family history Medications and Allergies Allergies Allergy/AdvReac Type Severity Reaction Status Date / Time No Known Allergies Allergy Verified 12/08/16 08:10 Home Medications Medication Instructions Recorded Confirmed Last Taken Type Pantoprazole Sodium 40 mg PO DAILY #30 tablet. 05/22/16 03/17/19 Unknown Rx Ferrous Gluconate [Fergon 325 MG 325 mg PO TID #30 tablet 12/08/16 03/17/19 Unknown Rx tab] Lansoprazole [Prevacid] 15 mg PO BID #30 cap 12/08/16 03/17/19 Unknown Rx raNITIdine HCl [Zantac] 150 mg PO Q12H #20 tablet 11/14/18 03/17/19 Unknown Rx traMADoL [Ultram 50 MG tab] 50 mg PO Q6HR PRN #14 tablet 11/14/18 03/17/19 Unknown Rx Active Meds: Active Medications Acetaminophen (Tylenol) 650 mg PO Q4H PRN PRN Reason: Pain MILD(1-3)/Fever >100.5/LYNN Aspirin (Baby Aspirin) 81 mg PO QDAY ANGELIA Atorvastatin Calcium (Lipitor) 20 mg PO QHS ANGELIA Docusate Sodium (Colace) 100 mg PO BID ANGELIA Heparin Sodium (Porcine) (Heparin) 5,000 unit SUB-Q Q12HR ANGELIA Nitroglycerin (Nitrostat) 0.4 mg SL Q5M PRN PRN Reason: Chest Pain Ondansetron HCl (Zofran) 4 mg IV Q8H PRN PRN Reason: Nausea And Vomiting Sodium Chloride (Sodium Chloride Flush Syringe 10 Ml) 10 ml IV BID ANGELIA Sodium Chloride (Sodium Chloride Flush Syringe 10 Ml) 10 ml IV PRN PRN PRN Reason: LINE FLUSH Tramadol HCl (Ultram) 25 mg PO Q4H PRN PRN Reason: Pain, Moderate (4-6) Review of Systems All systems: negative Constitutional: poor appetite (and poor oral intake for the past 3 days while on cocaine binge) Cardiovascular: chest pain Respiratory: cough Exam - Physical Exam Narrative exam: Physical exam General appearance: Present: No acute distress, resting, easily aroused, oriented 3, -Syrian male - EENT Eyes: Present: PERRL, EOM intact ENT: hearing intact, missing teeth - Neck Neck: Present: supple, normal ROM - Respiratory Respiratory effort: Non-labored Respiratory: Diminished bases - Cardiovascular Heart rate: 92 (bpm) Rhythm: Sinus rhythm Heart Sounds: Present: S1 & S2. Absent: rub, click - Extremities Extremities: no ischemia, pulses intact, - Peripheral Assessment Peripheral Pulses: within normal limits - Abdominal General gastrointestinal: soft, non-tender, normal bowel sounds - Integumentary Integumentary: Present: warm, dry - Musculoskeletal Musculoskeletal: Able to move all extremities -Neurological Neurological: CN II-XII intact - Psychiatric Psychiatric: cooperative - Constitutional Vitals: Temp Pulse Resp BP Pulse Ox 97.4 F L 92 H 17 94/60 100 03/16/19 16:59 03/16/19 22:11 03/16/19 20:31 03/17/19 03:08 03/16/19 20:01 Results - Labs CBC & Chem 7: 03/16/19 21:05 03/16/19 21:05 Labs: Laboratory Last Values WBC 9.6 K/mm3 (4.5-11.0) 03/16/19 21:05 RBC 4.51 M/mm3 (3.65-5.03) 03/16/19 21:05 Hgb 14.0 gm/dl (11.8-15.2) 03/16/19 21:05 Hct 42.0 % (35.5-45.6) 03/16/19 21:05 MCV 93 fl (84-94) 03/16/19 21:05 MCH 31 pg (28-32) 03/16/19 21:05 MCHC 33 % (32-34) 03/16/19 21:05 RDW 14.3 % (13.2-15.2) 03/16/19 21:05 Plt Count 159 K/mm3 (140-440) 03/16/19 21:05 Lymph % (Auto) 11.9 % (13.4-35.0) L 03/16/19 21:05 [place] % (Auto) 6.4 % (0.0-7.3) 03/16/19 21:05 Eos % (Auto) 1.7 % (0.0-4.3) 03/16/19 21:05 Baso % (Auto) 0.2 % (0.0-1.8) 03/16/19 21:05 Lymph # 1.1 K/mm3 (1.2-5.4) L 03/16/19 21:05 [place] # 0.6 K/mm3 (0.0-0.8) 03/16/19 21:05 Eos # 0.2 K/mm3 (0.0-0.4) 03/16/19 21:05 Baso # 0.0 K/mm3 (0.0-0.1) 03/16/19 21:05 Seg Neutrophils % 79.8 % (40.0-70.0) H 03/16/19 21:05 Seg Neutrophils # 7.7 K/mm3 (1.8-7.7) 03/16/19 21:05 Sodium 139 mmol/L (137-145) 03/16/19 21:05 Potassium 4.3 mmol/L (3.6-5.0) 03/16/19 21:05 Chloride 106.0 mmol/L (98-107) 03/16/19 21:05 Carbon Dioxide 22 mmol/L (22-30) 03/16/19 21:05 Anion Gap 15 mmol/L 03/16/19 21:05 BUN 10 mg/dL (9-20) 03/16/19 21:05 Creatinine 0.7 mg/dL (0.8-1.5) L 03/16/19 21:05 Estimated GFR > 60 ml/min 03/16/19 21:05 BUN/Creatinine Ratio 14 % 03/16/19 21:05 Glucose 103 mg/dL (75-100) H 03/16/19 21:05 Calcium 9.0 mg/dL (8.4-10.2) 03/16/19 21:05 Total Bilirubin 0.40 mg/dL (0.1-1.2) 03/16/19 21:05 AST 30 units/L (5-40) 03/16/19 21:05 ALT 27 units/L (7-56) 03/16/19 21:05 Alkaline Phosphatase 101 units/L (35-129) 03/16/19 21:05 Total Creatine Kinase 362 units/L (55-170) H 03/16/19 21:05 Troponin T 0.035 ng/mL (0.00-0.029) H D 03/17/19 00:07 Total Protein 7.3 g/dL (6.3-8.2) 03/16/19 21:05 Albumin 3.2 g/dL (3.9-5) L 03/16/19 21:05 Albumin/Globulin Ratio 0.8 % 03/16/19 21:05 Triglycerides 51 mg/dL (2-149) 03/17/19 00:07 Cholesterol 91 mg/dL (50-199) 03/17/19 00:07 LDL Cholesterol Direct 34 mg/dL (50-130) L 03/17/19 00:07 HDL Cholesterol 55 mg/dL (40-59) 03/17/19 00:07 Cholesterol/HDL Ratio 1.65 % 03/17/19 00:07 Urine Color Yellow (Yellow) 03/16/19 Unknown Urine Turbidity Clear (Clear) 03/16/19 Unknown Urine pH 6.0 (5.0-7.0) 03/16/19 Unknown Ur Specific [place] 1.020 (1.003-1.030) 03/16/19 Unknown Urine Protein <15 mg/dl mg/dL (Negative) 03/16/19 Unknown Urine Glucose (UA) Neg mg/dL (Negative) 03/16/19 Unknown Urine Ketones Neg mg/dL (Negative) 03/16/19 Unknown Urine Blood Neg (Negative) 03/16/19 Unknown Urine Nitrite Neg (Negative) 03/16/19 Unknown Urine Bilirubin Neg (Negative) 03/16/19 Unknown Urine Urobilinogen 4.0 mg/dL (<2.0) 03/16/19 Unknown Ur Leukocyte Esterase Sm (Negative) 03/16/19 Unknown Urine WBC (Auto) 4.0 /HPF (0.0-6.0) 03/16/19 Unknown Urine RBC (Auto) 4.0 /HPF (0.0-6.0) 03/16/19 Unknown U Epithel Cells (Auto) < 1.0 /HPF (0-13.0) 03/16/19 Unknown Urine Bacteria (Auto) 1+ /HPF (Negative) 03/16/19 Unknown Urine Mucus Few /HPF 03/16/19 Unknown Salicylates < 0.3 mg/dL (2.8-20.0) L 03/16/19 21:05 Urine Opiates Screen Presumptive negative 03/16/19 Unknown Urine Methadone Screen Presumptive negative 03/16/19 Unknown Acetaminophen < 5.0 ug/mL (10.0-30.0) L 03/16/19 21:05 Ur Barbiturates Screen Presumptive negative 03/16/19 Unknown Ur Phencyclidine Scrn Presumptive negative 03/16/19 Unknown Ur Amphetamines Screen Presumptive negative 03/16/19 Unknown U Benzodiazepines Scrn Presumptive negative 03/16/19 Unknown Urine Cocaine Screen Presumptive positive 03/16/19 Unknown U Marijuana (THC) Screen Presumptive negative 03/16/19 Unknown Drugs of Abuse Note Disclamer 03/16/19 Unknown Plasma/Serum Alcohol < 0.01 % (0-0.07) 03/16/19 21:05 - Imaging and Cardiology Imaging and Cardiology: CXR: FINDINGS: SUPPORT DEVICES: Stable appropriate position of cardiac pacemaker. HEART / MEDIASTINUM: No significant abnormality. LUNGS / PLEURA: No significant pulmonary or pleural abnormality. No pneumothorax. ADDITIONAL FINDINGS: No significant additional findings. IMPRESSION: 1. No acute findings. Assessment and Plan Assessment and plan: 68-year-old -Syrian male with a straight of tobacco abuse, cocaine abuse, alcohol abuse, COPD, HTN, rhinitis, and bleeding duodenal ulcer presents to [facility] ED with complaints of CP. At the time of my examination pt is resting comfortably in stretcher. When questioned at his chest pain pt first stated that it was resolved, but then shortly after he mentioned it had returned, and rated it 3/10. Acute Chest Pain R/O ACS -Initiate chest pain protocol -Continuous telemetry monitoring -Continue supportive care -Pain mgmt -Troponin 0.035 (trending up from 0.028) , will continue to trend; -If troponin continues to trend up will start on heparin gtt -EKG unrevealing for acute ischemic abnormalities -Has Pacemaker secondary to cocaine abuse -On ASA and Statin -Cardiology consulted Hypotension -BP on admission 87/59 -Responsive to fluid resuscitation -On IVF -Hx HTN -Continue to monitor BP -Hold all antihypertensive meds Acute exacerbation COPD -Albuterol prn Tobacco abuse -Current every day smoker -Counseled for cessation -Nicotine patch when necessary Cocaine abuse -Self report recent 3 day cocaine binge -Counseled for cessation -May benefit from Detox program once acute issues are resolved HxAlcohol abuse - Assess CIWA DVT PPX -On Heparin BID Advance Directives: No VTE prophylaxis?: Chemical Plan of care discussed with patient/family: Yes <ANDRZEJ CHRISTY - Last Filed: 03/17/19 22:02> History of Present Illness Date of admission: 03/17/19 03:38 Medications and Allergies Active Meds: Active Medications Acetaminophen (Tylenol) 650 mg PO Q4H PRN PRN Reason: Pain MILD(1-3)/Fever >100.5/LYNN Albuterol (Proventil) 2.5 mg IH Q4HRT PRN PRN Reason: Shortness Of Breath Aspirin (Baby Aspirin) 81 mg PO QDAY ANGELIA Atorvastatin Calcium (Lipitor) 20 mg PO QHS ANGELIA Docusate Sodium (Colace) 100 mg PO BID ANGELIA Heparin Sodium (Porcine) (Heparin) 5,000 unit SUB-Q Q12HR ANGELIA Sodium Chloride (Nacl 0.9% 1000 Ml) 1,000 mls @ 75 mls/hr IV DIRECT ANGELIA Stop: 03/17/19 12:00 Last Admin: 03/17/19 06:02 Dose: 75 mls/hr Documented by: Lorazepam (Ativan) 2 mg PO Q1H PRN PRN Reason: CIWA-Ar 8-15 Nitroglycerin (Nitrostat) 0.4 mg SL Q5M PRN PRN Reason: Chest Pain Ondansetron HCl (Zofran) 4 mg IV Q8H PRN PRN Reason: Nausea And Vomiting Sodium Chloride (Sodium Chloride Flush Syringe 10 Ml) 10 ml IV BID ANGELIA Sodium Chloride (Sodium Chloride Flush Syringe 10 Ml) 10 ml IV PRN PRN PRN Reason: LINE FLUSH Tramadol HCl (Ultram) 25 mg PO Q4H PRN PRN Reason: Pain, Moderate (4-6) Exam - Constitutional Vitals: Temp Pulse Resp BP Pulse Ox 97.5 F L 71 20 106/68 100 03/17/19 05:27 03/17/19 05:25 03/17/19 05:25 03/17/19 05:25 03/17/19 05:25 Results - Labs CBC & Chem 7: 03/16/19 21:05 03/16/19 21:05 Labs: Laboratory Last Values WBC 9.6 K/mm3 (4.5-11.0) 03/16/19 21:05 RBC 4.51 M/mm3 (3.65-5.03) 03/16/19 21:05 Hgb 14.0 gm/dl (11.8-15.2) 03/16/19 21:05 Hct 42.0 % (35.5-45.6) 03/16/19 21:05 MCV 93 fl (84-94) 03/16/19 21:05 MCH 31 pg (28-32) 03/16/19 21:05 MCHC 33 % (32-34) 03/16/19 21:05 RDW 14.3 % (13.2-15.2) 03/16/19 21:05 Plt Count 159 K/mm3 (140-440) 03/16/19 21:05 Lymph % (Auto) 11.9 % (13.4-35.0) L 03/16/19 21:05 [place]agher % (Auto) 6.4 % (0.0-7.3) 03/16/19 21:05 Eos % (Auto) 1.7 % (0.0-4.3) 03/16/19 21:05 Baso % (Auto) 0.2 % (0.0-1.8) 03/16/19 21:05 Lymph # 1.1 K/mm3 (1.2-5.4) L 03/16/19 21:05 [place] # 0.6 K/mm3 (0.0-0.8) 03/16/19 21:05 Eos # 0.2 K/mm3 (0.0-0.4) 03/16/19 21:05 Baso # 0.0 K/mm3 (0.0-0.1) 03/16/19 21:05 Seg Neutrophils % 79.8 % (40.0-70.0) H 03/16/19 21:05 Seg Neutrophils # 7.7 K/mm3 (1.8-7.7) 03/16/19 21:05 Sodium 139 mmol/L (137-145) 03/16/19 21:05 Potassium 4.3 mmol/L (3.6-5.0) 03/16/19 21:05 Chloride 106.0 mmol/L (98-107) 03/16/19 21:05 Carbon Dioxide 22 mmol/L (22-30) 03/16/19 21:05 Anion Gap 15 mmol/L 03/16/19 21:05 BUN 10 mg/dL (9-20) 03/16/19 21:05 Creatinine 0.7 mg/dL (0.8-1.5) L 03/16/19 21:05 Estimated GFR > 60 ml/min 03/16/19 21:05 BUN/Creatinine Ratio 14 % 03/16/19 21:05 Glucose 103 mg/dL (75-100) H 03/16/19 21:05 Calcium 9.0 mg/dL (8.4-10.2) 03/16/19 21:05 Total Bilirubin 0.40 mg/dL (0.1-1.2) 03/16/19 21:05 AST 30 units/L (5-40) 03/16/19 21:05 ALT 27 units/L (7-56) 03/16/19 21:05 Alkaline Phosphatase 101 units/L (35-129) 03/16/19 21:05 Total Creatine Kinase 362 units/L (55-170) H 03/16/19 21:05 Troponin T 0.035 ng/mL (0.00-0.029) H D 03/17/19 00:07 Total Protein 7.3 g/dL (6.3-8.2) 03/16/19 21:05 Albumin 3.2 g/dL (3.9-5) L 03/16/19 21:05 Albumin/Globulin Ratio 0.8 % 03/16/19 21:05 Triglycerides 51 mg/dL (2-149) 03/17/19 00:07 Cholesterol 91 mg/dL (50-199) 03/17/19 00:07 LDL Cholesterol Direct 34 mg/dL (50-130) L 03/17/19 00:07 HDL Cholesterol 55 mg/dL (40-59) 03/17/19 00:07 Cholesterol/HDL Ratio 1.65 % 03/17/19 00:07 Urine Color Yellow (Yellow) 03/16/19 Unknown Urine Turbidity Clear (Clear) 03/16/19 Unknown Urine pH 6.0 (5.0-7.0) 03/16/19 Unknown Ur Specific [place] 1.020 (1.003-1.030) 03/16/19 Unknown Urine Protein <15 mg/dl mg/dL (Negative) 03/16/19 Unknown Urine Glucose (UA) Neg mg/dL (Negative) 03/16/19 Unknown Urine Ketones Neg mg/dL (Negative) 03/16/19 Unknown Urine Blood Neg (Negative) 03/16/19 Unknown Urine Nitrite Neg (Negative) 03/16/19 Unknown Urine Bilirubin Neg (Negative) 03/16/19 Unknown Urine Urobilinogen 4.0 mg/dL (<2.0) 03/16/19 Unknown Ur Leukocyte Esterase Sm (Negative) 03/16/19 Unknown Urine WBC (Auto) 4.0 /HPF (0.0-6.0) 03/16/19 Unknown Urine RBC (Auto) 4.0 /HPF (0.0-6.0) 03/16/19 Unknown U Epithel Cells (Auto) < 1.0 /HPF (0-13.0) 03/16/19 Unknown Urine Bacteria (Auto) 1+ /HPF (Negative) 03/16/19 Unknown Urine Mucus Few /HPF 03/16/19 Unknown Salicylates < 0.3 mg/dL (2.8-20.0) L 03/16/19 21:05 Urine Opiates Screen Presumptive negative 03/16/19 Unknown Urine Methadone Screen Presumptive negative 03/16/19 Unknown Acetaminophen < 5.0 ug/mL (10.0-30.0) L 03/16/19 21:05 Ur Barbiturates Screen Presumptive negative 03/16/19 Unknown Ur Phencyclidine Scrn Presumptive negative 03/16/19 Unknown Ur Amphetamines Screen Presumptive negative 03/16/19 Unknown U Benzodiazepines Scrn Presumptive negative 03/16/19 Unknown Urine Cocaine Screen Presumptive positive 03/16/19 Unknown U Marijuana (THC) Screen Presumptive negative 03/16/19 Unknown Drugs of Abuse Note Disclamer 03/16/19 Unknown Plasma/Serum Alcohol < 0.01 % (0-0.07) 03/16/19 21:05 Assessment and Plan Assessment and plan: 68 year old man with history of CAD, HTN, COPD, cocaine use comes to ER with chest pain. Agree with plan as stated above
[2019-03-17] MEDS ORDERED: ALBUTEROL 2.5 MG/3 ML NEBU IH PRN (04:15)
[2019-03-17] MEDS ORDERED: SODIUM CHLORIDE 0.9% 1000 ML 1,000 ML IV SCH (04:15)
--- NOTE | 2019-03-17 08:55 | Progress Note ---
Assessment and Plan Assessment and plan: --Non-ST elevation NC; Continue aspirin and beta blockers and jackie inhibitors nitrates and statins Morphine, cardiology consult. Supportive care --Grade 2 LV dysfunction; per echo Continue cardiac medications, cardiology following --History of permanent pacemaker; interrogation as needed --History of Hypertension; Patient was hypotensive in the ER Home blood pressures improved with fluid boluses Closely monitor blood pressures, resume antihypertensives if needed --Acute exacerbation of COPD; Nebulizers, oxygen titrated to O2 sats more than 90%, IV steroids has needed Pulmonary consult if no improvement --Polysubstance abuse; --Ongoing tobacco use; smoking cessation counseling Nicotine patch as needed --History of alcohol abuse; Counseling advised to quit alcohol intake Monitor for alcohol withdrawal symptoms CIWA protocol as needed --History of cocaine use; Patient strongly advised to quit. Recreational drug use Verbalized understanding --DVT prophylaxis; Lovenox Monitor closely and adjust the management as needed Follow-up cardiology evaluation and recommendations Plan of care is reviewed for the patient and his nurse Advanced care plan 32 minutes History Interval history: Patient seen and examined medical records reviewed Patient complains of intermittent chest pain Positive cardiac enzymes, drug screen positive for cocaine Vital signs reviewed Hospitalist Physical - Constitutional Vitals: Temp Pulse Resp BP Pulse Ox 97.5 F L 71 20 106/68 100 03/17/19 05:27 03/17/19 05:25 03/17/19 05:25 03/17/19 05:25 03/17/19 05:25 General appearance: Present: mild distress, well-nourished - EENT Eyes: Present: PERRL, EOM intact - Neck Neck: Present: supple, normal ROM - Respiratory Respiratory effort: normal Respiratory: bilateral: diminished, rales, negative: rhonchi, wheezing - Cardiovascular Rhythm: regular Heart Sounds: Present: S1 & S2 - Extremities Extremities: no ischemia, No edema - Abdominal General gastrointestinal: soft, non-tender, non-distended, normal bowel sounds - Integumentary Integumentary: Present: clear, warm - Psychiatric Psychiatric: appropriate mood/affect, cooperative - Neurologic Neurologic: CNII-XII intact, moves all extremities Results - Labs CBC & Chem 7: 03/16/19 21:05 03/16/19 21:05 Labs: Laboratory Last Values WBC 9.6 K/mm3 (4.5-11.0) 03/16/19 21:05 RBC 4.51 M/mm3 (3.65-5.03) 03/16/19 21:05 Hgb 14.0 gm/dl (11.8-15.2) 03/16/19 21:05 Hct 42.0 % (35.5-45.6) 03/16/19 21:05 MCV 93 fl (84-94) 03/16/19 21:05 MCH 31 pg (28-32) 03/16/19 21:05 MCHC 33 % (32-34) 03/16/19 21:05 RDW 14.3 % (13.2-15.2) 03/16/19 21:05 Plt Count 159 K/mm3 (140-440) 03/16/19 21:05 Lymph % (Auto) 11.9 % (13.4-35.0) L 03/16/19 21:05 [place] % (Auto) 6.4 % (0.0-7.3) 03/16/19 21:05 Eos % (Auto) 1.7 % (0.0-4.3) 03/16/19 21:05 Baso % (Auto) 0.2 % (0.0-1.8) 03/16/19 21:05 Lymph # 1.1 K/mm3 (1.2-5.4) L 03/16/19 21:05 [place] # 0.6 K/mm3 (0.0-0.8) 03/16/19 21:05 Eos # 0.2 K/mm3 (0.0-0.4) 03/16/19 21:05 Baso # 0.0 K/mm3 (0.0-0.1) 03/16/19 21:05 Seg Neutrophils % 79.8 % (40.0-70.0) H 03/16/19 21:05 Seg Neutrophils # 7.7 K/mm3 (1.8-7.7) 03/16/19 21:05 Sodium 139 mmol/L (137-145) 03/16/19 21:05 Potassium 4.3 mmol/L (3.6-5.0) 03/16/19 21:05 Chloride 106.0 mmol/L (98-107) 03/16/19 21:05 Carbon Dioxide 22 mmol/L (22-30) 03/16/19 21:05 Anion Gap 15 mmol/L 03/16/19 21:05 BUN 10 mg/dL (9-20) 03/16/19 21:05 Creatinine 0.7 mg/dL (0.8-1.5) L 03/16/19 21:05 Estimated GFR > 60 ml/min 03/16/19 21:05 BUN/Creatinine Ratio 14 % 03/16/19 21:05 Glucose 103 mg/dL (75-100) H 03/16/19 21:05 Calcium 9.0 mg/dL (8.4-10.2) 03/16/19 21:05 Total Bilirubin 0.40 mg/dL (0.1-1.2) 03/16/19 21:05 AST 30 units/L (5-40) 03/16/19 21:05 ALT 27 units/L (7-56) 03/16/19 21:05 Alkaline Phosphatase 101 units/L (35-129) 03/16/19 21:05 Total Creatine Kinase 362 units/L (55-170) H 03/16/19 21:05 Troponin T 0.035 ng/mL (0.00-0.029) H D 03/17/19 00:07 Total Protein 7.3 g/dL (6.3-8.2) 03/16/19 21:05 Albumin 3.2 g/dL (3.9-5) L 03/16/19 21:05 Albumin/Globulin Ratio 0.8 % 03/16/19 21:05 Triglycerides 51 mg/dL (2-149) 03/17/19 00:07 Cholesterol 91 mg/dL (50-199) 03/17/19 00:07 LDL Cholesterol Direct 34 mg/dL (50-130) L 03/17/19 00:07 HDL Cholesterol 55 mg/dL (40-59) 03/17/19 00:07 Cholesterol/HDL Ratio 1.65 % 03/17/19 00:07 Urine Color Yellow (Yellow) 03/16/19 Unknown Urine Turbidity Clear (Clear) 03/16/19 Unknown Urine pH 6.0 (5.0-7.0) 03/16/19 Unknown Ur Specific [place] 1.020 (1.003-1.030) 03/16/19 Unknown Urine Protein <15 mg/dl mg/dL (Negative) 03/16/19 Unknown Urine Glucose (UA) Neg mg/dL (Negative) 03/16/19 Unknown Urine Ketones Neg mg/dL (Negative) 03/16/19 Unknown Urine Blood Neg (Negative) 03/16/19 Unknown Urine Nitrite Neg (Negative) 03/16/19 Unknown Urine Bilirubin Neg (Negative) 03/16/19 Unknown Urine Urobilinogen 4.0 mg/dL (<2.0) 03/16/19 Unknown Ur Leukocyte Esterase Sm (Negative) 03/16/19 Unknown Urine WBC (Auto) 4.0 /HPF (0.0-6.0) 03/16/19 Unknown Urine RBC (Auto) 4.0 /HPF (0.0-6.0) 03/16/19 Unknown U Epithel Cells (Auto) < 1.0 /HPF (0-13.0) 03/16/19 Unknown Urine Bacteria (Auto) 1+ /HPF (Negative) 03/16/19 Unknown Urine Mucus Few /HPF 03/16/19 Unknown Salicylates < 0.3 mg/dL (2.8-20.0) L 03/16/19 21:05 Urine Opiates Screen Presumptive negative 03/16/19 Unknown Urine Methadone Screen Presumptive negative 03/16/19 Unknown Acetaminophen < 5.0 ug/mL (10.0-30.0) L 03/16/19 21:05 Ur Barbiturates Screen Presumptive negative 03/16/19 Unknown Ur Phencyclidine Scrn Presumptive negative 03/16/19 Unknown Ur Amphetamines Screen Presumptive negative 03/16/19 Unknown U Benzodiazepines Scrn Presumptive negative 03/16/19 Unknown Urine Cocaine Screen Presumptive positive 03/16/19 Unknown U Marijuana (THC) Screen Presumptive negative 03/16/19 Unknown Drugs of Abuse Note Disclamer 03/16/19 Unknown Plasma/Serum Alcohol < 0.01 % (0-0.07) 03/16/19 21:05 Active Medications - Current Medications Current Medications: Generic Name Dose Route Start Last Admin Trade Name Freq PRN Reason Stop Dose Admin Acetaminophen 650 mg 03/17/19 03:38 Tylenol PO Q4H PRN Pain MILD(1-3)/Fever >100.5/LYNN Albuterol 2.5 mg 03/17/19 04:15 Proventil IH Q4HRT PRN Shortness Of Breath Aspirin 81 mg 03/18/19 10:00 Baby Aspirin PO QDAY [facility] Atorvastatin Calcium 20 mg 03/17/19 22:00 Lipitor PO QHS [facility] Docusate Sodium 100 mg 03/17/19 10:00 Colace PO BID [facility] Heparin Sodium (Porcine) 5,000 unit 03/17/19 10:00 Heparin SUB-Q Q12HR [facility] Sodium Chloride 1,000 mls @ 75 mls/hr 03/17/19 04:15 03/17/19 06:02 Nacl 0.9% 1000 Ml IV 03/17/19 12:00 75 mls/hr DIRECT [facility] Administration Lorazepam 2 mg 03/17/19 04:05 Ativan PO Q1H PRN CIWA-Ar 8-15 Nitroglycerin 0.4 mg 03/17/19 03:38 Nitrostat SL Q5M PRN Chest Pain Ondansetron HCl 4 mg 03/17/19 03:38 Zofran IV Q8H PRN Nausea And Vomiting Sodium Chloride 10 ml 03/17/19 10:00 Sodium Chloride Flush Syringe 10 Ml IV BID [facility] Sodium Chloride 10 ml 03/17/19 03:38 Sodium Chloride Flush Syringe 10 Ml IV PRN PRN LINE FLUSH Tramadol HCl 25 mg 03/17/19 03:38 Ultram PO Q4H PRN Pain, Moderate (4-6)
[2019-03-17] MEDS: LISINOPRIL 5 MG TAB PO SCH (10:11)
[2019-03-17] MEDS: HEPARIN 5,000 UNIT/1 ML VIAL SUB-Q SCH (10:12)
[2019-03-17] MEDS: DOCUSATE SODIUM 100 MG CAP PO SCH ×2 (10:12→20:15)
[2019-03-17] MEDS: amLODIPine 5 MG TAB PO SCH (10:12)
--- NOTE | 2019-03-17 13:42 | Consultation ---
<KIA FRANK - Last Filed: 03/17/19 13:45> History of Present Illness Consult date: 03/17/19 Requesting physician: JOSE R THOMASON Consult reason: chest pain History of present illness: Mr. Nelson is a 68 y/o male who presented to [facility] with CP that began after binging on cocaine for several days. He has a medical history significant for polysubstance abuse, COPD, hypertension and a PPM placed by a kitchen utility associate in [place]. He is not known to our practice and he is unsure when he last saw his kitchen utility associate in [place]. He is somnolent on examination, so history is limited. He notes that the CP is midsternal, intermittent and accompanied by SOB. Troponins mildly elevated to 0.028, 0.035 and 0.028. EKG and CXR NAF. An echocardiogram on 03/17/19 found an EF of 50 to 55 percent, mild LVH, grade 2 LV dysfunction, mild MR, mild TR and mild ID. Past History Past Medical History: arthritis, COPD, hypertension, other (PPM in situ, polysubstance abuse ) Past Surgical History: hernia repair, total hip replacement (left hip), Other (pace maker 2nd to cocaine abuse) Social history: lives with family (son), smoking (current everyday smoker), alcohol abuse, other (cocaine abuse) Family history: no significant family history Medications and Allergies Allergies Allergy/AdvReac Type Severity Reaction Status Date / Time No Known Allergies Allergy Verified 12/08/16 08:10 Home Medications Medication Instructions Recorded Confirmed Last Taken Type Pantoprazole Sodium 40 mg PO DAILY #30 tablet. 05/22/16 03/17/19 Unknown Rx Ferrous Gluconate [Fergon 325 MG 325 mg PO TID #30 tablet 12/08/16 03/17/19 Un known Rx tab] Lansoprazole [Prevacid] 15 mg PO BID #30 cap 12/08/16 03/17/19 Unknown Rx raNITIdine HCl [Zantac] 150 mg PO Q12H #20 tablet 11/14/18 03/17/19 Unknown Rx traMADoL [Ultram 50 MG tab] 50 mg PO Q6HR PRN #14 tablet 11/14/18 03/17/19 Unknown Rx Active Meds: Active Medications Acetaminophen (Tylenol) 650 mg PO Q4H PRN PRN Reason: Pain MILD(1-3)/Fever >100.5/LYNN Albuterol (Proventil) 2.5 mg IH Q4HRT PRN PRN Reason: Shortness Of Breath Amlodipine Besylate (Amlodipine) 5 mg PO QDAY [facility] Last Admin: 03/17/19 10:12 Dose: 5 mg Documented by: Aspirin (Baby Aspirin) 81 mg PO QDAY [facility] Atorvastatin Calcium (Lipitor) 20 mg PO QHS [facility] Docusate Sodium (Colace) 100 mg PO BID [facility] Last Admin: 03/17/19 10:12 Dose: 100 mg Documented by: Heparin Sodium (Porcine) (Heparin) 5,000 unit SUB-Q Q12HR [facility] Last Admin: 03/17/19 10:12 Dose: 5,000 unit Documented by: Lisinopril (Zestril) 2.5 mg PO QDAY [facility] Last Admin: 03/17/19 10:11 Dose: 2.5 mg Documented by: Lorazepam (Ativan) 2 mg PO Q1H PRN PRN Reason: CIWA-Ar 8-15 Nitroglycerin (Nitrostat) 0.4 mg SL Q5M PRN PRN Reason: Chest Pain Ondansetron HCl (Zofran) 4 mg IV Q8H PRN PRN Reason: Nausea And Vomiting Sodium Chloride (Sodium Chloride Flush Syringe 10 Ml) 10 ml IV BID [facility] Last Admin: 03/17/19 10:12 Dose: 10 ml Documented by: Sodium Chloride (Sodium Chloride Flush Syringe 10 Ml) 10 ml IV PRN PRN PRN Reason: LINE FLUSH Tramadol HCl (Ultram) 25 mg PO Q4H PRN PRN Reason: Pain, Moderate (4-6) Review of Systems All systems: negative Cardiovascular: chest pain Physical Examination Vital Signs Pulse Resp Pulse Ox 75 8 L 98 03/16/19 15:24 03/16/19 15:24 03/16/19 15:24 General appearance: no acute distress HEENT: Positive: PERRL Neck: Positive: neck supple Cardiac: Positive: Reg Rate and Rhythm Lungs: Positive: Normal Exam Neuro: Positive: Grossly Intact Abdomen: Positive: Unremarkable Male genitourinary: Positive: deferred Skin: Positive: Clear Musculoskeletal: No Pain Extremities: Present: normal Results 03/16/19 21:05 03/16/19 21:05 Cardiac Enzymes 03/16/19 Range/Units 21:05 AST 30 (5-40) units/L Lipids 03/17/19 Range/Units 00:07 Triglycerides 51 (2-149) mg/dL Cholesterol 91 (50-199) mg/dL HDL Cholesterol 55 (40-59) mg/dL Cholesterol/HDL Ratio 1.65 % CBC 03/16/19 Range/Units 21:05 WBC 9.6 (4.5-11.0) K/mm3 RBC 4.51 (3.65-5.03) M/mm3 Hgb 14.0 (11.8-15.2) gm/dl Hct 42.0 (35.5-45.6) % Plt Count 159 (140-440) K/mm3 Lymph # 1.1 L (1.2-5.4) K/mm3 [place] # 0.6 (0.0-0.8) K/mm3 Eos # 0.2 (0.0-0.4) K/mm3 Baso # 0.0 (0.0-0.1) K/mm3 Comprehensive Metabolic Panel 03/16/19 Range/Units 21:05 Sodium 139 (137-145) mmol/L Potassium 4.3 (3.6-5.0) mmol/L Chloride 106.0 (98-107) mmol/L Carbon Dioxide 22 (22-30) mmol/L BUN 10 (9-20) mg/dL Creatinine 0.7 L (0.8-1.5) mg/dL Glucose 103 H (75-100) mg/dL Calcium 9.0 (8.4-10.2) mg/dL AST 30 (5-40) units/L ALT 27 (7-56) units/L Alkaline Phosphatase 101 (35-129) units/L Total Protein 7.3 (6.3-8.2) g/dL Albumin 3.2 L (3.9-5) g/dL - Imaging and Cardiology Echo: report reviewed (03/17/19: 03/17/19 found an EF of 50 to 55 percent, mild LVH, grade 2 LV dysfunction, mild MR, mild TR and mild ID. ) - EKG Interpretation EKG: sinus rhythm EKG interpretations - Telemetry EKG Rhythm: Sinus Rhythm Chamber hypertrophy or enlargement: left ventricular hypertro Assessment and Plan Mr. Nelson is a 68 y/o male admitted with chest pain he experienced after a reported multiple-day cocaine binge. Mild troponin elevation could be nonspecific, but will obtain ischemic evaluation once he is medically stabilized. Continue current cardiac management for now. The patient has been seen in conjunction with Dr. Mak, who agrees with the assessment and plan. - Patient Problems (1) Chest pain Current Visit: Yes Status: Acute Qualifiers: Chest pain type: chest pain due to myocardial ischemia Ischemic chest pain type: stable angina pectoris Qualified Code(s): I20.8 - Other forms of angina pectoris (2) Cardiac pacemaker in situ Current Visit: Yes Status: Chronic (3) Cocaine abuse Current Visit: Yes Status: Chronic (4) ETOH abuse Current Visit: No Status: Chronic (5) COPD (chronic obstructive pulmonary disease) Current Visit: Yes Status: Chronic (6) Hypertension Current Visit: Yes Status: Chronic (7) Bleeding duodenal ulcer Current Visit: Yes Status: Inactive <[id number] MAK R - Last Filed: 03/17/19 16:48> Medications and Allergies Active Meds: Active Medications Acetaminophen (Tylenol) 650 mg PO Q4H PRN PRN Reason: Pain MILD(1-3)/Fever >100.5/LYNN Albuterol (Proventil) 2.5 mg IH Q4HRT PRN PRN Reason: Shortness Of Breath Amlodipine Besylate (Amlodipine) 5 mg PO QDAY [facility] Last Admin: 03/17/19 10:12 Dose: 5 mg Documented by: Aspirin (Baby Aspirin) 81 mg PO QDAY [facility] Atorvastatin Calcium (Lipitor) 20 mg PO QHS [facility] Docusate Sodium (Colace) 100 mg PO BID [facility] Last Admin: 03/17/19 10:12 Dose: 100 mg Documented by: Heparin Sodium (Porcine) (Heparin) 5,000 unit SUB-Q Q12HR [facility] Last Admin: 03/17/19 10:12 Dose: 5,000 unit Documented by: Lisinopril (Zestril) 2.5 mg PO QDAY [facility] Last Admin: 03/17/19 10:11 Dose: 2.5 mg Documented by: Lorazepam (Ativan) 2 mg PO Q1H PRN PRN Reason: CIWA-Ar 8-15 Nitroglycerin (Nitrostat) 0.4 mg SL Q5M PRN PRN Reason: Chest Pain Ondansetron HCl (Zofran) 4 mg IV Q8H PRN PRN Reason: Nausea And Vomiting Sodium Chloride (Sodium Chloride Flush Syringe 10 Ml) 10 ml IV BID [facility] Last Admin: 03/17/19 10:12 Dose: 10 ml Documented by: Sodium Chloride (Sodium Chloride Flush Syringe 10 Ml) 10 ml IV PRN PRN PRN Reason: LINE FLUSH Tramadol HCl (Ultram) 25 mg PO Q4H PRN PRN Reason: Pain, Moderate (4-6) Physical Examination Vital Signs Pulse Resp Pulse Ox 75 8 L 98 03/16/19 15:24 03/16/19 15:24 03/16/19 15:24 Results 03/16/19 21:05 03/16/19 21:05 Cardiac Enzymes 03/16/19 Range/Units 21:05 AST 30 (5-40) units/L Lipids 03/17/19 Range/Units 00:07 Triglycerides 51 (2-149) mg/dL Cholesterol 91 (50-199) mg/dL HDL Cholesterol 55 (40-59) mg/dL Cholesterol/HDL Ratio 1.65 % CBC 03/16/19 Range/Units 21:05 WBC 9.6 (4.5-11.0) K/mm3 RBC 4.51 (3.65-5.03) M/mm3 Hgb 14.0 (11.8-15.2) gm/dl Hct 42.0 (35.5-45.6) % Plt Count 159 (140-440) K/mm3 Lymph # 1.1 L (1.2-5.4) K/mm3 [place] # 0.6 (0.0-0.8) K/mm3 Eos # 0.2 (0.0-0.4) K/mm3 Baso # 0.0 (0.0-0.1) K/mm3 Comprehensive Metabolic Panel 03/16/19 Range/Units 21:05 Sodium 139 (137-145) mmol/L Potassium 4.3 (3.6-5.0) mmol/L Chloride 106.0 (98-107) mmol/L Carbon Dioxide 22 (22-30) mmol/L BUN 10 (9-20) mg/dL Creatinine 0.7 L (0.8-1.5) mg/dL Glucose 103 H (75-100) mg/dL Calcium 9.0 (8.4-10.2) mg/dL AST 30 (5-40) units/L ALT 27 (7-56) units/L Alkaline Phosphatase 101 (35-129) units/L Total Protein 7.3 (6.3-8.2) g/dL Albumin 3.2 L (3.9-5) g/dL Assessment and Plan rec interrogation of perm pacemaker
[2019-03-17] MEDS: LORazepam 2 MG TAB PO PRN (20:15)
[2019-03-18] MEDS: LORazepam 2 MG TAB PO PRN ×2 (04:04→22:45)
[2019-03-18] MEDS: HEPARIN 5,000 UNIT/1 ML VIAL SUB-Q SCH ×3 (06:02→22:46)
[2019-03-18] MEDS: DOCUSATE SODIUM 100 MG CAP PO SCH ×3 (06:02→22:44)
[2019-03-18] MEDS: ASPIRIN 81 MG TAB CHEW PO SCH (11:13)
[2019-03-18] MEDS: LISINOPRIL 5 MG TAB PO SCH (11:14)
[2019-03-18] MEDS: amLODIPine 5 MG TAB PO SCH (11:15)
[2019-03-18 12:06] LABS: Basophils % (Auto) 0.6 % (0.0-1.8); Eosinophils # (Auto) 0.2 K/mm3 (0.0-0.4); Eosinophils % (Auto) 3.1 % (0.0-4.3); Hematocrit 41.8 % (35.5-45.6); Hemoglobin 13.7 gm/dl (11.8-15.2); Lymphocytes # (Auto) 0.8 K/mm3 (1.2-5.4); Lymphocytes % (Auto) 11.9 % (13.4-35.0); Mean Corpuscular HGB Conc 33 % (32-34); Mean Corpuscular Volume 93 fl (84-94); Monocytes # (Auto) 0.3 K/mm3 (0.0-0.8); Monocytes % (Auto) 4.9 % (0.0-7.3); Platelet Count 164 K/mm3 (140-440); Red Cell Distribution Width 14.4 % (13.2-15.2)
[2019-03-18 12:29] LABS: BUN/Creatinine Ratio 10; Blood Urea Nitrogen 7 mg/dL (9-20); Calcium 8.9 mg/dL (8.4-10.2); Hemolysis Index 9
--- NOTE | 2019-03-18 15:48 | Progress Note ---
Assessment and Plan Mr. Nelson is a 68 y/o male admitted with chest pain he experienced after a reported multiple-day cocaine binge. Chest pain currently resolved. An echocardiogram on 03/17/19 found an EF of 50 to 55 percent, mild LVH, grade 2 LV dysfunction, mild MR, mild TR and mild [place]. LHC done 07/2014 showed normal coronaries. Will proceed with lexiscan MPI stress test in AM. NPO after MN. Interrogate PPM - device is dual chamber [employer] PPM, implanted 02/19/2018. Of note, pt is in apparent atrial fibrillation and atrial flutter with CVR underlying ventricular pacing. He appears to be a poor and unreliable candidate for systemic AC in setting of polysubstance abuse and medical noncompliance. The patient has been seen in conjunction with Dr. Shelby who agrees with the assessment and plan of care. - Patient Problems (1) Chest pain Current Visit: Yes Status: Resolved Qualifiers: Chest pain type: chest pain due to myocardial ischemia Ischemic chest pain type: stable angina pectoris Qualified Code(s): I20.8 - Other forms of angina pectoris (2) Cardiac pacemaker in situ Current Visit: Yes Status: Chronic (3) Cocaine abuse Current Visit: Yes Status: Chronic (4) ETOH abuse Current Visit: No Status: Chronic (5) COPD (chronic obstructive pulmonary disease) Current Visit: Yes Status: Chronic (6) Hypertension Current Visit: Yes Status: Chronic (7) Atrial fibrillation and flutter Current Visit: Yes Status: Chronic Subjective Date of service: 03/18/19 Principal diagnosis: cp; cocaine use Interval history: pt resting in bed, no current complaints. CORRECTIONAL MANAGER on telemetry Objective Last Vital Signs Temp 98.1 F 03/18/19 03:42 Pulse 75 03/18/19 11:15 Resp 16 03/18/19 12:44 BP 115/93 03/18/19 11:15 Pulse Ox 98 03/18/19 03:42 - Physical Examination General: No Apparent Distress HEENT: Positive: PERRL Neck: Positive: neck supple Cardiac: Positive: Regular Rate, S1/S2 Lungs: Positive: Decreased Breath Sounds Neuro: Positive: Grossly Intact Abdomen: Positive: Unremarkable Skin: Positive: Clear Musculoskeletal: No Pain Extremities: Present: normal - Labs and Meds CBC 03/18/19 Range/Units 11:43 WBC 6.5 (4.5-11.0) K/mm3 RBC 4.50 (3.65-5.03) M/mm3 Hgb 13.7 (11.8-15.2) gm/dl Hct 41.8 (35.5-45.6) % Plt Count 164 (140-440) K/mm3 Lymph # 0.8 L (1.2-5.4) K/mm3 [place] # 0.3 (0.0-0.8) K/mm3 Eos # 0.2 (0.0-0.4) K/mm3 Baso # 0.0 (0.0-0.1) K/mm3 Comprehensive Metabolic Panel 03/18/19 Range/Units 11:43 Sodium 136 L (137-145) mmol/L Potassium 3.9 (3.6-5.0) mmol/L Chloride 101.9 (98-107) mmol/L Carbon Dioxide 21 L (22-30) mmol/L BUN 7 L (9-20) mg/dL Creatinine 0.7 L (0.8-1.5) mg/dL Glucose 101 H (75-100) mg/dL Calcium 8.9 (8.4-10.2) mg/dL - Imaging and Cardiology Echo: report reviewed (03/17/19: 03/17/19 found an EF of 50 to 55 percent, mild LVH, grade 2 LV dysfunction, mild MR, mild TR and mild [place]. ) Chamber hypertrophy or enlargement: left ventricular hypertro
--- NOTE | 2019-03-18 19:03 | Progress Note ---
Assessment and Plan Assessment and plan: --Non-ST elevation OH; Continue aspirin and beta blockers and jackie inhibitors nitrates and statins Cardiology following, stress test tomorrow --Grade 2 LV dysfunction; per echo CHF medications --History of permanent pacemaker; stable --History of Hypertension; Patient was hypotensive in the ER Home blood pressures improved with fluid boluses Closely monitor blood pressures, resume antihypertensives if needed --Acute exacerbation of COPD; Nebulizers, oxygen titrated to O2 sats more than 90%, IV steroids has needed Pulmonary consult if no improvement --Polysubstance abuse; --Ongoing tobacco use; smoking cessation counseling Nicotine patch as needed --History of alcohol abuse; Counseling advised to quit alcohol intake Monitor for alcohol withdrawal symptoms CIWA protocol as needed --History of cocaine use; Patient strongly advised to quit. Recreational drug use Verbalized understanding --DVT prophylaxis; Lovenox Monitor closely and adjust the management as needed Follow-up cardiology evaluation and recommendations Plan of care is reviewed for the patient and his nurse Advanced care plan 32 minutes History Interval history: Patient seen and examined Medical recordsreviewed Patient has intermittent mild chest pain Vital signs reviewed Hospitalist Physical - Constitutional Vitals: Temp Pulse Resp BP Pulse Ox 98.1 F 75 16 115/93 98 03/18/19 03:42 03/18/19 11:15 03/18/19 12:44 03/18/19 11:15 03/18/19 03:42 General appearance: Present: mild distress, well-nourished - EENT Eyes: Present: PERRL, EOM intact - Neck Neck: Present: supple, normal ROM - Respiratory Respiratory effort: normal Respiratory: bilateral: diminished, negative: rales, rhonchi, wheezing - Cardiovascular Rhythm: regular Heart Sounds: Present: S1 & S2 - Extremities Extremities: no ischemia, No edema - Abdominal General gastrointestinal: soft, non-tender, non-distended, normal bowel sounds - Integumentary Integumentary: Present: clear, warm - Psychiatric Psychiatric: appropriate mood/affect - Neurologic Neurologic: moves all extremities Results - Labs CBC & Chem 7: 03/18/19 11:43 03/18/19 11:43 Labs: Laboratory Last Values WBC 6.5 K/mm3 (4.5-11.0) 03/18/19 11:43 RBC 4.50 M/mm3 (3.65-5.03) 03/18/19 11:43 Hgb 13.7 gm/dl (11.8-15.2) 03/18/19 11:43 Hct 41.8 % (35.5-45.6) 03/18/19 11:43 MCV 93 fl (84-94) 03/18/19 11:43 MCH 31 pg (28-32) 03/18/19 11:43 MCHC 33 % (32-34) 03/18/19 11:43 RDW 14.4 % (13.2-15.2) 03/18/19 11:43 Plt Count 164 K/mm3 (140-440) 03/18/19 11:43 Lymph % (Auto) 11.9 % (13.4-35.0) L 03/18/19 11:43 [place] % (Auto) 4.9 % (0.0-7.3) 03/18/19 11:43 Eos % (Auto) 3.1 % (0.0-4.3) 03/18/19 11:43 Baso % (Auto) 0.6 % (0.0-1.8) 03/18/19 11:43 Lymph # 0.8 K/mm3 (1.2-5.4) L 03/18/19 11:43 [place] # 0.3 K/mm3 (0.0-0.8) 03/18/19 11:43 Eos # 0.2 K/mm3 (0.0-0.4) 03/18/19 11:43 Baso # 0.0 K/mm3 (0.0-0.1) 03/18/19 11:43 Seg Neutrophils % 79.5 % (40.0-70.0) H 03/18/19 11:43 Seg Neutrophils # 5.2 K/mm3 (1.8-7.7) 03/18/19 11:43 Sodium 136 mmol/L (137-145) L 03/18/19 11:43 Potassium 3.9 mmol/L (3.6-5.0) 03/18/19 11:43 Chloride 101.9 mmol/L (98-107) 03/18/19 11:43 Carbon Dioxide 21 mmol/L (22-30) L 03/18/19 11:43 Anion Gap 17 mmol/L 03/18/19 11:43 BUN 7 mg/dL (9-20) L 03/18/19 11:43 Creatinine 0.7 mg/dL (0.8-1.5) L 03/18/19 11:43 Estimated GFR > 60 ml/min 03/18/19 11:43 BUN/Creatinine Ratio 10 % 03/18/19 11:43 Glucose 101 mg/dL (75-100) H 03/18/19 11:43 Calcium 8.9 mg/dL (8.4-10.2) 03/18/19 11:43 Total Bilirubin 0.40 mg/dL (0.1-1.2) 03/16/19 21:05 AST 30 units/L (5-40) 03/16/19 21:05 ALT 27 units/L (7-56) 03/16/19 21:05 Alkaline Phosphatase 101 units/L (35-129) 03/16/19 21:05 Total Creatine Kinase 362 units/L (55-170) H 03/16/19 21:05 Troponin T 0.011 ng/mL (0.00-0.029) 03/18/19 11:43 Total Protein 7.3 g/dL (6.3-8.2) 03/16/19 21:05 Albumin 3.2 g/dL (3.9-5) L 03/16/19 21:05 Albumin/Globulin Ratio 0.8 % 03/16/19 21:05 Triglycerides 51 mg/dL (2-149) 03/17/19 00:07 Cholesterol 91 mg/dL (50-199) 03/17/19 00:07 LDL Cholesterol Direct 34 mg/dL (50-130) L 03/17/19 00:07 HDL Cholesterol 55 mg/dL (40-59) 03/17/19 00:07 Cholesterol/HDL Ratio 1.65 % 03/17/19 00:07 Urine Color Yellow (Yellow) 03/16/19 Unknown Urine Turbidity Clear (Clear) 03/16/19 Unknown Urine pH 6.0 (5.0-7.0) 03/16/19 Unknown Ur Specific [place] 1.020 (1.003-1.030) 03/16/19 Unknown Urine Protein <15 mg/dl mg/dL (Negative) 03/16/19 Unknown Urine Glucose (UA) Neg mg/dL (Negative) 03/16/19 Unknown Urine Ketones Neg mg/dL (Negative) 03/16/19 Unknown Urine Blood Neg (Negative) 03/16/19 Unknown Urine Nitrite Neg (Negative) 03/16/19 Unknown Urine Bilirubin Neg (Negative) 03/16/19 Unknown Urine Urobilinogen 4.0 mg/dL (<2.0) 03/16/19 Unknown Ur Leukocyte Esterase Sm (Negative) 03/16/19 Unknown Urine WBC (Auto) 4.0 /HPF (0.0-6.0) 03/16/19 Unknown Urine RBC (Auto) 4.0 /HPF (0.0-6.0) 03/16/19 Unknown U Epithel Cells (Auto) < 1.0 /HPF (0-13.0) 03/16/19 Unknown Urine Bacteria (Auto) 1+ /HPF (Negative) 03/16/19 Unknown Urine Mucus Few /HPF 03/16/19 Unknown Salicylates < 0.3 mg/dL (2.8-20.0) L 03/16/19 21:05 Urine Opiates Screen Presumptive negative 03/16/19 Unknown Urine Methadone Screen Presumptive negative 03/16/19 Unknown Acetaminophen < 5.0 ug/mL (10.0-30.0) L 03/16/19 21:05 Ur Barbiturates Screen Presumptive negative 03/16/19 Unknown Ur Phencyclidine Scrn Presumptive negative 03/16/19 Unknown Ur Amphetamines Screen Presumptive negative 03/16/19 Unknown U Benzodiazepines Scrn Presumptive negative 03/16/19 Unknown Urine Cocaine Screen Presumptive positive 03/16/19 Unknown U Marijuana (THC) Screen Presumptive negative 03/16/19 Unknown Drugs of Abuse Note Disclamer 03/16/19 Unknown Plasma/Serum Alcohol < 0.01 % (0-0.07) 03/16/19 21:05 Active Medications - Current Medications Current Medications: Generic Name Dose Route Start Last Admin Trade Name Freq PRN Reason Stop Dose Admin Acetaminophen 650 mg 03/17/19 03:38 Tylenol PO Q4H PRN Pain MILD(1-3)/Fever >100.5/LYNN Albuterol 2.5 mg 03/17/19 04:15 Proventil IH Q4HRT PRN Shortness Of Breath Amlodipine Besylate 5 mg 03/17/19 10:00 03/18/19 11:15 Amlodipine PO 5 mg QDAY [facility] Administration Aspirin 81 mg 03/18/19 10:00 03/18/19 11:13 Baby Aspirin PO 81 mg QDAY [facility] Administration Atorvastatin Calcium 20 mg 03/17/19 22:00 03/18/19 06:02 Lipitor PO Not Given QHS [facility] Docusate Sodium 100 mg 03/17/19 10:00 03/18/19 11:14 Colace PO 100 mg BID [facility] Administration Heparin Sodium (Porcine) 5,000 unit 03/17/19 10:00 03/18/19 11:16 Heparin SUB-Q Not Given Q12HR [facility] Lisinopril 2.5 mg 03/17/19 10:00 03/18/19 11:14 Zestril PO 2.5 mg QDAY [facility] Administration Lorazepam 2 mg 03/17/19 04:05 03/18/19 04:04 Ativan PO 2 mg Q1H PRN Administration CIWA-Ar 8-15 Nitroglycerin 0.4 mg 03/17/19 03:38 Nitrostat SL Q5M PRN Chest Pain Ondansetron HCl 4 mg 03/17/19 03:38 Zofran IV Q8H PRN Nausea And Vomiting Sodium Chloride 10 ml 03/17/19 10:00 03/18/19 11:15 Sodium Chloride Flush Syringe 10 Ml IV Not Given BID [facility] Sodium Chloride 10 ml 03/17/19 03:38 Sodium Chloride Flush Syringe 10 Ml IV PRN PRN LINE FLUSH Tramadol HCl 25 mg 03/17/19 03:38 Ultram PO Q4H PRN Pain, Moderate (4-6)
[2019-03-19] MEDS ORDERED: REGADENOSON 0.4 MG/5 ML INJ IV ONE ×2 (08:15→08:21)
[2019-03-19] MEDS: LISINOPRIL 5 MG TAB PO SCH (10:00)
[2019-03-19] MEDS: ASPIRIN 81 MG TAB CHEW PO SCH (10:00)
[2019-03-19] MEDS: HEPARIN 5,000 UNIT/1 ML VIAL SUB-Q SCH ×2 (10:00→23:14)
[2019-03-19] MEDS: DOCUSATE SODIUM 100 MG CAP PO SCH ×2 (10:00→23:13)
[2019-03-19] MEDS: amLODIPine 5 MG TAB PO SCH (10:00)
--- NOTE | 2019-03-19 10:50 | Progress Note ---
Assessment and Plan Proceed with lexiscan MPI stress test. Await findings. Interrogate PPM - device is dual chamber [employer] PPM, implanted 02/19/2018. Of note, pt is in apparent atrial fibrillation and atrial flutter with CVR underlying ventricular pacing. He appears to be a poor and unreliable candidate for systemic AC in setting of polysubstance abuse and medical noncompliance. The patient has been seen in conjunction with Dr. Shelby who agrees with the assessment and plan of care. - Patient Problems (1) Chest pain Current Visit: Yes Status: Resolved Qualifiers: Chest pain type: chest pain due to myocardial ischemia Ischemic chest pain type: stable angina pectoris Qualified Code(s): I20.8 - Other forms of angina pectoris (2) Cardiac pacemaker in situ Current Visit: Yes Status: Chronic (3) Cocaine abuse Current Visit: Yes Status: Chronic (4) ETOH abuse Current Visit: No Status: Chronic (5) COPD (chronic obstructive pulmonary disease) Current Visit: Yes Status: Chronic (6) Hypertension Current Visit: Yes Status: Chronic (7) Atrial fibrillation and flutter Current Visit: Yes Status: Chronic Subjective Date of service: 03/19/19 Principal diagnosis: cp; cocaine use Interval history: pt for stress test today, no current complaints. BUSINESS CENTER REPRESENTATIVE with underlying AFib and AFlutter on telemetry. Objective Last Vital Signs Temp 97.9 F 03/19/19 08:04 Pulse 71 03/19/19 08:04 Resp 18 03/19/19 08:04 BP 107/69 03/19/19 08:04 Pulse Ox 99 03/19/19 08:04 - Physical Examination General: No Apparent Distress HEENT: Positive: PERRL Neck: Positive: neck supple Cardiac: Positive: Reg Rate and Rhythm, S1/S2 Lungs: Positive: Decreased Breath Sounds Neuro: Positive: Grossly Intact Abdomen: Positive: Unremarkable Skin: Positive: Clear Musculoskeletal: No Pain Extremities: Present: normal - Labs and Meds CBC 03/18/19 Range/Units 11:43 WBC 6.5 (4.5-11.0) K/mm3 RBC 4.50 (3.65-5.03) M/mm3 Hgb 13.7 (11.8-15.2) gm/dl Hct 41.8 (35.5-45.6) % Plt Count 164 (140-440) K/mm3 Lymph # 0.8 L (1.2-5.4) K/mm3 [place] # 0.3 (0.0-0.8) K/mm3 Eos # 0.2 (0.0-0.4) K/mm3 Baso # 0.0 (0.0-0.1) K/mm3 Comprehensive Metabolic Panel 03/18/19 Range/Units 11:43 Sodium 136 L (137-145) mmol/L Potassium 3.9 (3.6-5.0) mmol/L Chloride 101.9 (98-107) mmol/L Carbon Dioxide 21 L (22-30) mmol/L BUN 7 L (9-20) mg/dL Creatinine 0.7 L (0.8-1.5) mg/dL Glucose 101 H (75-100) mg/dL Calcium 8.9 (8.4-10.2) mg/dL - Imaging and Cardiology EKG: report reviewed, image reviewed Echo: report reviewed (03/17/19: 03/17/19 found an EF of 50 to 55 percent, mild LVH, grade 2 LV dysfunction, mild MR, mild TR and mild [place]. ) - Telemetry EKG Rhythm: Sinus Rhythm Chamber hypertrophy or enlargement: left ventricular hypertro
--- NOTE | 2019-03-19 14:36 | Event Note ---
Date: 03/19/19 S/p lexiscan MPI stress test today which showed fixed defects, no significant ischemia, LVEF 40%. PPM interrogation showed normal device function. Currently stable cardiac status. Pt may discharge from cardiology standpoint. Recommend pt follow up in our office with Dr. Vidal within 1-2 weeks ([phone]). Rayne POLLARD NP / DR. BRADSHAW
--- NOTE | 2019-03-19 16:51 | Discharge Summary ---
Providers - Providers Date of Admission: 03/17/19 03:38 Date of discharge: 03/20/19 Attending physician: BRENDA LIM 03/17/19 Consult to Cardiac Rehabilitation [CONS] Routine Reason For Exam: Phase I 03/17/19 03:38 Consult to Physician [CONS] Routine Comment: Consulting Provider: DANNY BRADSHAW Physician Instructions: Reason For Exam: chest pain,s/p cocaine binge, has pacemaker Primary care physician: [facility], Hospitalization Reason for admission: Chest pain Condition: Stable Pertinent studies: Echo EF 50 to 55% Chest x-ray/no acute abnormality Procedures: S/p lexiscan MPI stress test today which showed fixed defects, no significant ischemia, LVEF 40%. PPM interrogation showed normal device function. Hospital course: 68-year-old -Dominican male with a straight of tobacco abuse, cocaine abuse, alcohol abuse, COPD, HTN, rhinitis, and bleeding duodenal ulcer presents to [facility] with complaints of CP. Pt states that he was on a 3 day cocaine binge, and after coming off the binge he started experiencing chest pain. Pt acknowledges that when he uses cocaine he experiences shortness of breath and or chest pain. Evaluated by chief clerk,medications optimised Had Stress test,negative for ischemia,Grade 2 diastolic dysfunction. Patients,symptoms significantly improved. Today patient is comfortable, no new complaints,vitals stable. Cleared for discharge. Discharge Diagnosis: --Non-ST elevation NM; Continue aspirin and beta blockers and jackie inhibitors nitrates and statins Cardiology following, stress test negative for ischemia --Grade 2 diastolic dysfunction; per echo CHF medications --History of permanent pacemaker; stable --History of Hypertension;Stable Closely monitor blood pressures, antihypertensives if needed --Acute exacerbation of COPD; Nebulizers, oxygen titrated to O2 sats more than 90%, IV steroids,Pulmonary f/u PRN upon discharge --Polysubstance abuse;advised to quit --Ongoing tobacco use; smoking cessation counseling Nicotine patch as needed --History of alcohol abuse; Counseling advised to quit alcohol intake Monitor for alcohol withdrawal symptoms CIWA protocol as needed --History of cocaine use; Patient strongly advised to quit. Recreational drug use Verbalized understanding --DVT prophylaxis; Lovenox Stable at discharge. Disposition: - TO HOME OR SELFCARE Time spent for discharge: 32 min Core Measure Documentation - Palliative Care Palliative Care/ Comfort Measures: Not Applicable - Core Measures Any of the following diagnoses?: none Exam - Constitutional Vitals: Temp Pulse Resp BP Pulse Ox 97.9 F 90 18 110/80 99 03/19/19 16:15 03/19/19 16:15 03/19/19 16:15 03/19/19 16:15 03/19/19 16:15 General appearance: Present: no acute distress, well-nourished - EENT Eyes: Present: PERRL, EOM intact - Neck Neck: Present: supple, normal ROM - Respiratory Respiratory effort: normal Respiratory: bilateral: diminished, negative: rales, rhonchi, wheezing - Cardiovascular Rhythm: regular Heart Sounds: Present: S1 & S2 - Extremities Extremities: no ischemia, No edema - Abdominal General gastrointestinal: Present: soft, non-tender, non-distended, normal bowel sounds - Integumentary Integumentary: Present: clear, warm - Musculoskeletal Musculoskeletal: strength equal bilaterally - Psychiatric Psychiatric: appropriate mood/affect, cooperative - Neurologic Neurologic: CNII-XII intact, moves all extremities Plan Activity: no restrictions Diet: other (cardiac diet) Special Instructions: smoking cessation Additional Instructions: f/u Senior Solutions Engineer Dr. Vidal within 1-2 weeks ([phone]). If you have any chest pain or shortness of breath, contact MD or go to emergency room. Advised to quit alcohol intake. Advised to quit recreational drug use cocaine. Advised smoking cessation Follow up with: [facility] MD TREVER [Primary Care Provider] - 7 Days NGUYỄN VIDAL MD [Staff Physician] - 7 Days Prescriptions: amLODIPine 5 mg PO QDAY #30 tablet Aspirin [Aspirin BABY CHEW TAB] 81 mg PO QDAY #30 tab.chew Nicotine [Habitrol] 14 mg TD DAILY #30 patch AtorvaSTATin [Lipitor] 20 mg PO QHS #30 tablet lisinopriL [Zestril TAB] 2.5 mg PO QDAY #30 tablet
--- NOTE | 2019-03-19 21:20 | Event Note ---
Date: 03/19/19 Pt disagrees with discharge and would like to appeal his discharge.
[2019-03-20 09:17] VITALS: BP 137/97
[2019-03-20] MEDS: LISINOPRIL 5 MG TAB PO SCH (11:27)
--- NOTE | 2019-03-20 11:28 | Progress Note ---
Assessment and Plan Assessment and plan: --Non-ST elevation DC; Continue aspirin and beta blockers and jackie inhibitors nitrates and statins Cardiology following, stress test today --Grade 2 diastolic dysfunction; per echo CHF medications --History of permanent pacemaker; stable --History of Hypertension; Patient was hypotensive in the ER Home blood pressures improved with fluid boluses Closely monitor blood pressures, resume antihypertensives if needed --Acute exacerbation of COPD; Nebulizers, oxygen titrated to O2 sats more than 90%, IV steroids has needed Pulmonary consult if no improvement --Polysubstance abuse; --Ongoing tobacco use; smoking cessation counseling Nicotine patch as needed --History of alcohol abuse; Counseling advised to quit alcohol intake Monitor for alcohol withdrawal symptoms CIWA protocol as needed --History of cocaine use; Patient strongly advised to quit. Recreational drug use Verbalized understanding --DVT prophylaxis; Lovenox Monitor closely and adjust the management as needed Follow-up cardiology evaluation and recommendations Plan of care is reviewed for the patient and his nurse f/u stress test ,if negative and stable ,patient may be disharged home History Interval history: Patient seen and examined Patient scheduled for stress test today No new complaints,vitals reviewed Hospitalist Physical - Constitutional Vitals: Temp Pulse Resp BP Pulse Ox 97.9 F 75 18 137/97 100 03/20/19 09:15 03/20/19 11:27 03/20/19 09:15 03/20/19 09:15 03/20/19 09:15 General appearance: Present: no acute distress, well-nourished - EENT Eyes: Present: PERRL, EOM intact - Neck Neck: Present: supple, normal ROM - Respiratory Respiratory effort: normal Respiratory: bilateral: diminished, negative: rales, rhonchi, wheezing - Cardiovascular Rhythm: regular Heart Sounds: Present: S1 & S2 - Extremities Extremities: no ischemia, No edema - Abdominal General gastrointestinal: soft, non-tender, non-distended, normal bowel sounds - Integumentary Integumentary: Present: clear, warm - Psychiatric Psychiatric: appropriate mood/affect, cooperative - Neurologic Neurologic: CNII-XII intact, moves all extremities Results - Labs CBC & Chem 7: 03/18/19 11:43 03/18/19 11:43 Labs: Laboratory Last Values WBC 6.5 K/mm3 (4.5-11.0) 03/18/19 11:43 RBC 4.50 M/mm3 (3.65-5.03) 03/18/19 11:43 Hgb 13.7 gm/dl (11.8-15.2) 03/18/19 11:43 Hct 41.8 % (35.5-45.6) 03/18/19 11:43 MCV 93 fl (84-94) 03/18/19 11:43 MCH 31 pg (28-32) 03/18/19 11:43 MCHC 33 % (32-34) 03/18/19 11:43 RDW 14.4 % (13.2-15.2) 03/18/19 11:43 Plt Count 164 K/mm3 (140-440) 03/18/19 11:43 Lymph % (Auto) 11.9 % (13.4-35.0) L 03/18/19 11:43 Moffat % (Auto) 4.9 % (0.0-7.3) 03/18/19 11:43 Eos % (Auto) 3.1 % (0.0-4.3) 03/18/19 11:43 Baso % (Auto) 0.6 % (0.0-1.8) 03/18/19 11:43 Lymph # 0.8 K/mm3 (1.2-5.4) L 03/18/19 11:43 Moffat # 0.3 K/mm3 (0.0-0.8) 03/18/19 11:43 Eos # 0.2 K/mm3 (0.0-0.4) 03/18/19 11:43 Baso # 0.0 K/mm3 (0.0-0.1) 03/18/19 11:43 Seg Neutrophils % 79.5 % (40.0-70.0) H 03/18/19 11:43 Seg Neutrophils # 5.2 K/mm3 (1.8-7.7) 03/18/19 11:43 Sodium 136 mmol/L (137-145) L 03/18/19 11:43 Potassium 3.9 mmol/L (3.6-5.0) 03/18/19 11:43 Chloride 101.9 mmol/L (98-107) 03/18/19 11:43 Carbon Dioxide 21 mmol/L (22-30) L 03/18/19 11:43 Anion Gap 17 mmol/L 03/18/19 11:43 BUN 7 mg/dL (9-20) L 03/18/19 11:43 Creatinine 0.7 mg/dL (0.8-1.5) L 03/18/19 11:43 Estimated GFR > 60 ml/min 03/18/19 11:43 BUN/Creatinine Ratio 10 % 03/18/19 11:43 Glucose 101 mg/dL (75-100) H 03/18/19 11:43 Calcium 8.9 mg/dL (8.4-10.2) 03/18/19 11:43 Total Bilirubin 0.40 mg/dL (0.1-1.2) 03/16/19 21:05 AST 30 units/L (5-40) 03/16/19 21:05 ALT 27 units/L (7-56) 03/16/19 21:05 Alkaline Phosphatase 101 units/L (35-129) 03/16/19 21:05 Total Creatine Kinase 362 units/L (55-170) H 03/16/19 21:05 Troponin T 0.011 ng/mL (0.00-0.029) 03/18/19 11:43 Total Protein 7.3 g/dL (6.3-8.2) 03/16/19 21:05 Albumin 3.2 g/dL (3.9-5) L 03/16/19 21:05 Albumin/Globulin Ratio 0.8 % 03/16/19 21:05 Triglycerides 51 mg/dL (2-149) 03/17/19 00:07 Cholesterol 91 mg/dL (50-199) 03/17/19 00:07 LDL Cholesterol Direct 34 mg/dL (50-130) L 03/17/19 00:07 HDL Cholesterol 55 mg/dL (40-59) 03/17/19 00:07 Cholesterol/HDL Ratio 1.65 % 03/17/19 00:07 Urine Color Yellow (Yellow) 03/16/19 Unknown Urine Turbidity Clear (Clear) 03/16/19 Unknown Urine pH 6.0 (5.0-7.0) 03/16/19 Unknown Ur Specific [place] 1.020 (1.003-1.030) 03/16/19 Unknown Urine Protein <15 mg/dl mg/dL (Negative) 03/16/19 Unknown Urine Glucose (UA) Neg mg/dL (Negative) 03/16/19 Unknown Urine Ketones Neg mg/dL (Negative) 03/16/19 Unknown Urine Blood Neg (Negative) 03/16/19 Unknown Urine Nitrite Neg (Negative) 03/16/19 Unknown Urine Bilirubin Neg (Negative) 03/16/19 Unknown Urine Urobilinogen 4.0 mg/dL (<2.0) 03/16/19 Unknown Ur Leukocyte Esterase Sm (Negative) 03/16/19 Unknown Urine WBC (Auto) 4.0 /HPF (0.0-6.0) 03/16/19 Unknown Urine RBC (Auto) 4.0 /HPF (0.0-6.0) 03/16/19 Unknown U Epithel Cells (Auto) < 1.0 /HPF (0-13.0) 03/16/19 Unknown Urine Bacteria (Auto) 1+ /HPF (Negative) 03/16/19 Unknown Urine Mucus Few /HPF 03/16/19 Unknown Salicylates < 0.3 mg/dL (2.8-20.0) L 03/16/19 21:05 Urine Opiates Screen Presumptive negative 03/16/19 Unknown Urine Methadone Screen Presumptive negative 03/16/19 Unknown Acetaminophen < 5.0 ug/mL (10.0-30.0) L 03/16/19 21:05 Ur Barbiturates Screen Presumptive negative 03/16/19 Unknown Ur Phencyclidine Scrn Presumptive negative 03/16/19 Unknown Ur Amphetamines Screen Presumptive negative 03/16/19 Unknown U Benzodiazepines Scrn Presumptive negative 03/16/19 Unknown Urine Cocaine Screen Presumptive positive 03/16/19 Unknown U Marijuana (THC) Screen Presumptive negative 03/16/19 Unknown Drugs of Abuse Note Disclamer 03/16/19 Unknown Plasma/Serum Alcohol < 0.01 % (0-0.07) 03/16/19 21:05 Active Medications - Current Medications Current Medications: Generic Name Dose Route Start Last Admin Trade Name Freq PRN Reason Stop Dose Admin Acetaminophen 650 mg 03/17/19 03:38 Tylenol PO Q4H PRN Pain MILD(1-3)/Fever >100.5/LYNN Albuterol 2.5 mg 03/17/19 04:15 Proventil IH Q4HRT PRN Shortness Of Breath Amlodipine Besylate 5 mg 03/17/19 10:00 03/19/19 10:00 Amlodipine PO Not Given QDAY [facility] Aspirin 81 mg 03/18/19 10:00 03/19/19 10:00 Baby Aspirin PO Not Given QDAY ANGELIA Atorvastatin Calcium 20 mg 03/17/19 22:00 03/19/19 23:14 Lipitor PO 20 mg QHS ANGELIA Administration Docusate Sodium 100 mg 03/17/19 10:00 03/19/19 23:13 Colace PO 100 mg BID ANGELIA Administration Heparin Sodium (Porcine) 5,000 unit 03/17/19 10:00 03/19/19 23:14 Heparin SUB-Q 5,000 unit Q12HR ANGELIA Administration Lisinopril 2.5 mg 03/17/19 10:00 03/20/19 11:27 Zestril PO 2.5 mg QDAY ANGELIA Administration Lorazepam 2 mg 03/17/19 04:05 03/18/19 22:45 Ativan PO 2 mg Q1H PRN Administration CIWA-Ar 8-15 Nitroglycerin 0.4 mg 03/17/19 03:38 Nitrostat SL Q5M PRN Chest Pain Ondansetron HCl 4 mg 03/17/19 03:38 Zofran IV Q8H PRN Nausea And Vomiting Sodium Chloride 10 ml 03/17/19 10:00 03/19/19 23:16 Sodium Chloride Flush Syringe 10 Ml IV 10 ml BID ANGELIA Administration Sodium Chloride 10 ml 03/17/19 03:38 Sodium Chloride Flush Syringe 10 Ml IV PRN PRN LINE FLUSH Tramadol HCl 25 mg 03/17/19 03:38 03/18/19 22:44 Ultram PO 25 mg Q4H PRN Administration Pain, Moderate (4-6)
[2019-03-20] MEDS: ASPIRIN 81 MG TAB CHEW PO SCH (11:30)
[2019-03-20] MEDS: DOCUSATE SODIUM 100 MG CAP PO SCH (11:30)
[2019-03-20] MEDS: amLODIPine 5 MG TAB PO SCH (11:30)
--- NOTE | 2019-03-21 01:14 | Treadmill Report ---
REASON FOR STUDY: Abnormal troponin and chest pain. IMAGING PROTOCOL: The patient received 10 mCi of Technetium 99m Tetrofosmin for resting image and 28 mCi of Technetium 99m Tetrofosmin for stress imaging. The imaging for the whole procedure was completed 30-90 minutes following the initial injection of Technetium 99m Tetrofosmin. The SPECT imaging in the 180 degree arc was performed in the right anterior oblique projection. Computerized reconstruction of the images was performed for analysis. IMAGING RESULTS: Normal cavity size from stress to rest. Normal distribution of radionuclide in the anterior, inferior, septal, and lateral regions. There is a [id number] decrease in the apical region seen on stress and rest with gated SPECT, EF 40% with mild global hypokinesis. The patient infused Lexiscan with no EKG changes. SUMMARY: 1. Negative Lexiscan EKG. 2. No significant ischemia, mmbi-[id number] apical defect with normal perfusion in the anterior, inferior, septal, lateral regions. EF of 40%. JOB# [id number] WOODY/ABIODUN
== END 2019-03-20 14:00 | disposition home or self-care (01) | DRG 311 ==
LOC: ED 16:48 → INTOOBSV 03-17 03:38 → 4A 03-17 03:38 → OBSVTOIN 03-17 03:38
PROVIDERS: ADMIT Internal Medicine; ATTEND Internal Medicine
PROC: 4B02XSZ Measurement of Cardiac Pacemaker, External Approach (ICD-10-PCS; principal; 2019-03-19)
DX: I20.8 Other forms of angina pectoris (principal); J44.1 Chronic obstructive pulmonary disease with (acute) exacerbation; I48.92 Unspecified atrial flutter; Z96.642 Presence of left artificial hip joint; F10.10 Alcohol abuse, uncomplicated; Y90.9 Presence of alcohol in blood, level not specified; I48.91 Unspecified atrial fibrillation; F14.10 Cocaine abuse, uncomplicated; I95.9 Hypotension, unspecified; F17.210 Nicotine dependence, cigarettes, uncomplicated; Z71.6 Tobacco abuse counseling; Z95.0 Presence of cardiac pacemaker; Z71.41 Alcohol abuse counseling and surveillance of alcoholic; Z71.51 Drug abuse counseling and surveillance of drug abuser
CPT/HCPCS: 36415; 71045; 78452; 80048; 80053; 80061; 80307; 80320; 81001; 82550; 84484; 85025; 93005; 93010; 93017; 93306; 96360; 99406; G0378; A9270-GY; A9502; G0480; J1644; J2785; J7030

== ENCOUNTER 2019-04-01 14:51 | Emergency (ER) | payer MEDICARE | END 2019-04-01 22:33 | disposition home or self-care (01) | LOC: ED 14:51 | CPT/HCPCS: 36415; 72100; 72131; 80053; 80307; 80320; 81001; 83690; 85025; 99284; G0480 ==

== ENCOUNTER 2020-01-27 20:00 | Emergency (ER) | payer MEDICARE ==
--- NOTE | 2020-01-27 20:12 | Event Note ---
ED Screening Note Date of service: 01/27/20 Time: 20:10 ED Screening Note: Pt complains of lower abdominal pain x 3 days denies vomiting or hematochezia pt is a poor historian This initial assessment/diagnostic orders/clinical plan/treatment(s) is/are subject to change based on patients health status, clinical progression and re- assessment by fellow clinical providers in the ED. Further treatment and workup at subsequent clinical providers discretion. Patient/guardian urged not to elope from the ED as their condition may be serious if not clinically assessed and managed. Initial orders include: labs
[2020-01-27 20:33] LABS: Basophils % (Auto) 0.2 % (0.0-1.8); Eosinophils # (Auto) 0.3 K/mm3 (0.0-0.4); Eosinophils % (Auto) 3.3 % (0.0-4.3); Hemoglobin 14.7 gm/dl (11.8-15.2); Lymphocytes # (Auto) 1.3 K/mm3 (1.2-5.4); Lymphocytes % (Auto) 12.6 % (13.4-35.0); Mean Corpuscular HGB Conc 33 % (32-34); Mean Corpuscular Volume 95 fl (84-94); Monocytes # (Auto) 0.8 K/mm3 (0.0-0.8); Monocytes % (Auto) 7.5 % (0.0-7.3); Platelet Count 126 K/mm3 (140-440); Red Blood Count 4.63 M/mm3 (3.65-5.03); Red Cell Distribution Width 14.5 % (13.2-15.2)
[2020-01-27 20:47] LABS: Alanine Aminotransferase 36 units/L (7-56); Albumin 3.6 g/dL (3.9-5); Blood Urea Nitrogen 9 mg/dL (9-20); Calcium 9.2 mg/dL (8.4-10.2); Hemolysis Index 19
[2020-01-27 20:49] LABS: BUN/Creatinine Ratio 13
--- NOTE | 2020-01-28 01:54 | Emergency Department Report ---
HPI - General Chief Complaint: Abdominal Pain Time Seen by Provider: 01/27/20 20:10 - HPI HPI: This is a 69-year-old -Iraqi male presents to the emergency department with complaint of a few days of lower abdominal pain. He denies any nausea, vo miting, dysuria, fever, diarrhea, constipation. He has a past medical history of arthritis, COPD, hypertension, pacemaker in situ. Patient says that he was then a hospital in [place] as of 1 week ago and says that he was there for some type of trauma in which he fell and hit his head. Patient's family, who lives in [place], later called and says that the patient was supposed to be at some type of a group home facility in [place] but somehow left and made his way down to [place]. Family also says that he has a history of dementia. However the patient is currently AAO x3. The patient says that he has lately been staying at some type of transitional housing and that he was brought in today by the ship laborer. ED Past Medical Hx - Past Medical History Previous Medical History?: Yes Hx Hypertension: Yes ((pt denies 12/08/16)) Hx CVA: Yes Hx Heart Attack/AMI: No Hx Congestive Heart Failure: No Hx Arthritis: Yes Hx COPD: Yes Additional medical history: bleeding ulcers, Alzheimers? - Surgical History Past Surgical History?: Yes Hx Pacemaker: Yes Additional Surgical History: left hip replacement. hernia repair. pacemaker - Social History Smoking Status: Unknown if ever smoked - Medications Home Medications: Home Medications Medication Instructions Recorded Confirmed Last Taken Type Pantoprazole Sodium 40 mg PO DAILY #30 tablet. 05/22/16 03/17/19 Unknown Rx Ferrous Gluconate [Fergon 325 MG 325 mg PO TID #30 tablet 12/08/16 03/17/19 Unknown Rx tab] traMADoL [Ultram 50 MG tab] 50 mg PO Q6HR PRN #14 tablet 11/14/18 03/17/19 Unknown Rx Aspirin [Aspirin BABY CHEW TAB] 81 mg PO QDAY #30 tab.chew 03/19/19 Unknown Rx AtorvaSTATin [Lipitor] 20 mg PO QHS #30 tablet 03/19/19 Unknown Rx Nicotine [Habitrol] 14 mg TD DAILY #30 patch 03/19/19 Unknown Rx amLODIPine 5 mg PO QDAY #30 tablet 03/19/19 Unknown Rx lisinopriL [Zestril TAB] 2.5 mg PO QDAY #30 tablet 03/19/19 Unknown Rx Naproxen [Naprosyn] 500 mg PO BID #20 tablet 04/01/19 Unknown Rx methOCARBAMOL [Robaxin TAB] 500 mg PO Q8HR PRN #20 tablet 04/01/19 Unknown Rx ED Review of Systems ROS: Stated complaint: SEIZURE Other details as noted in HPI Comment: All other systems reviewed and negative Constitutional: denies: chills, fever Eyes: denies: eye pain, vision change ENT: denies: ear pain, throat pain Respiratory: denies: cough, shortness of breath Cardiovascular: denies: chest pain, palpitations Gastrointestinal: abdominal pain. denies: vomiting, diarrhea, constipation Genitourinary: denies: dysuria, discharge Musculoskeletal: denies: back pain, arthralgia Skin: denies: rash, lesions Neurological: denies: headache, weakness Physical Exam - Physical Exam Vital Signs: Vital Signs 01/27/20 20:12 Temperature 98.6 F Pulse Rate 82 Respiratory 18 Rate Blood Pressure 129/77 O2 Sat by Pulse 97 Oximetry Physical Exam: GENERAL: The patient is well-developed well-nourished. HENT: Normocephalic. Atraumatic. Patient has moist mucous membranes. EYES: Extraocular motions are intact. NECK: Supple. Trachea is midline. CHEST/LUNGS: Clear to auscultation. There is no respiratory distress noted. HEART/CARDIOVASCULAR: Regular. There is no tachycardia. There is no murmur. ABDOMEN: Abdomen is soft. Lower abdominal tenderness to palpation. Patient has normal bowel sounds. There is no abdominal distention. SKIN: Skin is warm and dry. NEURO: The patient is awake, alert, and cooperative. The patient has no focal neurologic deficits. Normal speech. MUSCULOSKELETAL: There is no tenderness or deformity. ED Course Vital Signs 01/27/20 20:12 Temperature 98.6 F Pulse Rate 82 Respiratory 18 Rate Blood Pressure 129/77 O2 Sat by Pulse 97 Oximetry - Reevaluation(s) Reevaluation #1: 01/28/20 05:46 Lab Results 01/27/20 01/27/20 Range/Units 20:21 20:21 WBC 10.7 (4.5-11.0) K/mm3 RBC 4.63 (3.65-5.03) M/mm3 Hgb 14.7 (11.8-15.2) gm/dl Hct 44.0 (35.5-45.6) % MCV 95 H (84-94) fl MCH 32 (28-32) pg MCHC 33 (32-34) % RDW 14.5 (13.2-15.2) % Plt Count 126 L (140-440) K/mm3 Lymph % (Auto) 12.6 L (13.4-35.0) % Tate % (Auto) 7.5 H (0.0-7.3) % Eos % (Auto) 3.3 (0.0-4.3) % Baso % (Auto) 0.2 (0.0-1.8) % Lymph # (Auto) 1.3 (1.2-5.4) K/mm3 Tate # (Auto) 0.8 (0.0-0.8) K/mm3 Eos # (Auto) 0.3 (0.0-0.4) K/mm3 Baso # (Auto) 0.0 (0.0-0.1) K/mm3 Seg Neutrophils % 76.4 H (40.0-70.0) % Seg Neutrophils # 8.1 H (1.8-7.7) K/mm3 Sodium 136 L (137-145) mmol/L Potassium 3.9 (3.6-5.0) mmol/L Chloride 102.0 (98-107) mmol/L Carbon Dioxide 22 (22-30) mmol/L Anion Gap 16 mmol/L BUN 9 (9-20) mg/dL Creatinine 0.7 L (0.8-1.3) mg/dL Estimated GFR > 60 ml/min BUN/Creatinine Ratio 13 % Glucose 104 H (75-100) mg/dL Calcium 9.2 (8.4-10.2) mg/dL Total Bilirubin 0.60 (0.1-1.2) mg/dL AST 37 (5-40) units/L ALT 36 (7-56) units/L Alkaline Phosphatase 108 (35-129) units/L Total Protein 7.6 (6.3-8.2) g/dL Albumin 3.6 L (3.9-5) g/dL Albumin/Globulin Ratio 0.9 % Lipase 82 H (13-60) units/L ED Medical Decision Making - Lab Data Result diagrams: 01/27/20 20:21 01/29/20 07:13 - Radiology Data Radiology results: report reviewed CT abdomen pelvis w con INDICATION: Patient complains of lower abd pain. TECHNIQUE: All CT scans at this location are performed using the following dose modulation technique: Automated exposure control. Helical slices were obtained through the abdomen and pelvis following the administration of 100 cc of Omnipaque 300 COMPARISON: CT scan dated 12/08/2016 FINDINGS: Abdomen: No acute abnormality is seen in the lower chest. The liver, spleen, pancreas, adrenal glands, and small bowel show no acute abnormality. There are small renal cysts. There is no hydronephrosis. Pelvis: There is no obstruction or inflammation. Prostatic calcifications are noted. There is no adenopathy. The appendix is unremarkable. On review of bone windows, degenerative changes are noted in the imaged spine and in the right hip. No acute osseous abnormalities are seen. IMPRESSION: 1. There is no obstruction, inflammation, or free air. There are no abnormal fluid collections. - Medical Decision Making This patient presents to the emergency department with a complaint of lower abdominal pain. He has some reproducible lower abdominal tenderness to palpation but otherwise no guarding. The abdomen is soft, nondistended and nontoxic in appearance. Patient's labs are mostly unremarkable thus far including CBC and CMP, but the patient does have a slightly elevated lipase level of about 81. Patient had a CT scan of the abdomen and pelvis with IV contrast that does not show any acute intra-abdominal or pelvic process. Patient does not appear to require a medical admission for his abdominal pain at this time. However there are some discharge planning issues. Patient's family says that he has some history of dementia. At the time of my examination the patient is AAO x3. However, during the initial attempt to get the CT scan done, the patient started exhibiting some aggressive/agitated behavior. He was given a dose of Geodon as treatment for this so that we could complete the rest of his evaluation. We are waiting for a blood alcohol level, and a urine sample for urinalysis and UDS. The patient's family is in [place]. Supposedly the patient is supposed to be in [place]. A consult has been placed for both case management and a mental health assessment. Critical Care Time: No Critical care attestation.: If time is entered above; I have spent that time in minutes in the direct care of this critically ill patient, excluding procedure time. ED Disposition Clinical Impression: Abdominal pain, Discharge planning issues, Cocaine abuse Disposition: DC-01 TO HOME OR SELFCARE Is pt being admited?: No Condition: Stable Additional Instructions: In case of an emergency, please contact the following numbers: [place] Crisis and Access Line: Number: Crisis Text Line: (Text START) Number: [phone] Suicide Prevention Line: Number: Emergency Number: 911 SUBSTANCE ABUSE PROGRAMS: [facility]: Location: [place], [place] [facility] Address: [address] [place] [address] [facility]: Address: [address] [place] [address] [facility]: Address: [address] [place] [address] [facility]: Address: [address] [place] [address] [facility] Address: [address] [place] [id number]. Please contact above numbers to attempt placement into free based program. Medicaid Programs: [facility]: Address: [address] [place] [address] [facility]: Address: [address] [place] [id number] HOMELESS RESOURCES: [facility] NEED HELP? If you are in need of help or know someone who does, please contact us at [email or web address] call , or come to our offices at [address] [place] [address], Monday-Monday beginning at 8AM. [facility] Admission at 7am Mon to Mon Address: [address] [place] [address] Client Engagement [phone] Regular program admission occurs Monday through Monday at 7:00 amand operates on a first come, first serve basis.Because we cant anticipate program availability in advance andprogram spots are in high demand, we recommend arriving early. Space fills up fast! Next steps can include: Assignment to a [facility] program bed Connection to and placement in a partner program, or Referral to a partner agency [place] [facility]: [facility] Address: [address] [place] [address] How do I join the [facility] housing program? Our housing programs are offered based on availability. If you are looking to participate in our housing program, simply call [phone] to find out if we have available space. Since we do receive many calls, please allow up to 48 hours for one of our housing specialists to return your call. If we do not have vacancies, we suggest callingthe [facility] hotline at 211 for additional housing options. [facility] Admission at 4:30pm daily Address: [address] [place] [address], [place] [address] Referrals: PRIMARY CAREMD [Primary Care Provider] - 3-5 Days
[2020-01-28] MEDS ORDERED: ZIPRASIDONE MESYLATE 20 MG VIAL IM ONE (02:13)
[2020-01-28] MEDS ORDERED: SODIUM CHLORIDE 0.9% 1000 ML 1,000 ML IV ONE (03:59)
[2020-01-28 09:24] LABS: Bilirubin,Urine NEG (Negative); Blood,Urine SM (Negative); Color,Urine Yellow (Yellow); Protein,Urine <15 mg/dL mg/dL (Negative); Urobilinogen,Urine < 2.0 mg/dL (<2.0)
[2020-01-28 09:54] LABS: Amphetamine Screen,Urine PRESUMPTIVE NEGATIVE; Benzodiazepines Screen,Urine PRESUMPTIVE NEGATIVE; Cannabinoid Screen,Urine PRESUMPTIVE NEGATIVE; Cocaine Screen,Urine PRESUMPTIVE POSITIVE; Methadone Screen,Urine PRESUMPTIVE NEGATIVE; Opiate Screen,Urine PRESUMPTIVE NEGATIVE
--- NOTE | 2020-01-28 09:56 | Cat Scan Report ---
CT abdomen pelvis w con INDICATION: Patient complains of lower abd pain. TECHNIQUE: All CT scans at this location are performed using the following dose modulation technique: Automated exposure control. Helical slices were obtained through the abdomen and pelvis following the administr ation of 100 cc of Omnipaque 300 COMPARISON: CT scan dated 12/08/2016 FINDINGS: Abdomen: No acute abnormality is seen in the lower chest. The liver, spleen, pancreas, adrenal glands , and small bowel show no acute abnormality. There are small renal cysts. There is no hydronephrosis. Pelvis: There is no obstruction or inflammation. Prostatic calcifications are noted. There is no mu opathy. The appendix is unremarkable. On review of bone windows, degenerative changes are noted in the imaged spine and in the right hip. N o acute osseous abnormalities are seen. IMPRESSION: 1. There is no obstruction, inflammation, or free air. There are no abnormal fluid collections. Signer Name: Keith Gusman MD Signed: 01/28/2020 4:36 AM Workstation Name: [id number]
[2020-01-29 07:51] LABS: Creatine Kinase MB 8.1 ng/mL (0.0-4.0)
[2020-01-29 07:55] LABS: Blood Urea Nitrogen 10 mg/dL (9-20); Calcium 8.7 mg/dL (8.4-10.2); Hemolysis Index 27
[2020-01-29 08:01] LABS: BUN/Creatinine Ratio 17
--- NOTE | 2020-01-29 13:59 | XRay Report ---
CHEST - 1 VIEW INDICATION: Placement at [facility] COMPARISON: 03/16/2019 FINDINGS: SUPPORT DEVICES: Stable support device positioning. HEART: Stable cardiomediastinal silhouette. LUNGS/PLEURA: Clear lungs. ADDITIONAL FINDINGS: None. IMPRESSION: No acute abnormality. Stable support device positioning. Signer Name: Maico Dozier MD Signed: 01/29/2020 1:55 PM Workstation Name: [id number]
[2020-01-30 14:04] VITALS: BP 143/90
== END 2020-01-30 14:04 | disposition home or self-care (01) ==
LOC: ED 20:00
DX: F14.10 Cocaine abuse, uncomplicated (principal); R10.30 Lower abdominal pain, unspecified; I10 Essential (primary) hypertension; J44.9 Chronic obstructive pulmonary disease, unspecified; M19.90 Unspecified osteoarthritis, unspecified site; Z95.0 Presence of cardiac pacemaker; Z79.899 Other long term (current) drug therapy; Z20.828 Contact with and (suspected) exposure to other viral communicable diseases; Z98.890 Other specified postprocedural states; Z02.9 Encounter for administrative examinations, unspecified
CPT/HCPCS: 36415; 71046; 74177; 80048; 80053; 80307; 81001; 82550; 82553; 83690; 85025; 96360; 96361; 96372; 99285; J3486; J7030; Q9967; U0003; 80320; G0480